=== PATIENT | male | born 1945 | race Caucasian/White ===

== ENCOUNTER 2020-01-28 10:12 | Inpatient (IN) | payer MEDICARE, OTHER, SELFPAY ==
[2020-01-28] VITALS (147 sets, daily range): BP systolic 97–159; BP diastolic 44–120; PULSE 46–165; RESP 9–38; TEMP 36.4–36.8; O2SAT 94–100
--- NOTE | 2020-01-28 10:00 | RT.EKG_ITS ---
APPROVED REPORT Exam: Resting ECG Patient Location: E HR:109 bpm ECG Measurements Heart Rate 109 AXIS NV [id number] P [id number] QRSd 81 QRS 38 QT 314 T 265 QTc 423 Conclusion Atrial fibrillationv RATE 109, NONSPECIFIC ST CHANGES
--- NOTE | 2020-01-28 10:24 | W.ED.GENAD ---
Discharge Plan Disposition Patient Disposition: [facility] INPATIENT Condition: Fair Discharge Details Chief Complaint: Chest Pain Clinical Impression: Atrial fibrillation, Elevated troponin Admit Date/Time: 01/28/20 17:40 Admit Provider: Evangelista Whiting Attending Provider: Evangelista Whiting Primary Care Provider: Lucia,[facility] ED Provider: Kaya Ruiz Discharge Data Discharge Date/Time-TO BE ENTERED AT DEPARTURE: 01/28/20 16:50 Medical Decision Making Patient is a pleasant 74-year-old gentleman past medical history significant for prostate cancer, type 2 diabetes, hypertension, cardiac catheterization with stent placements, SVT. States that at 3:00 this morning he awoke feeling short of breath. States that he felt fluttering in his chest. Is endorsing some right sided chest pain associated with this. He is denying any shortness of breath at this point. Continues to have the sensations. No nausea or vomiting. No pain in his back. States this does not feel like when he has had cardiac ischemic events historically. Patient is on aspirin Plavix and diabetes medications this morning. He reports he is on metoprolol and took this last night. Took ASA this morning, took his normal dose of Plavix. EKG was reviewed by Dr. Pena. Patient was in an irregular irregular rhythm with a heart rate estimate at 109. Most consistent with atrial fibrillation. patient and I discussed risk/benefits as well as expected procedural steps associated with using diltiazem. He is well within the 48-hour window. Patient has been taking his Plavix and ASA. Patinet given 20mg IV Diltiazem. Patient tolerated this well. He converted to NSR with rate in the 60s. Will obtain repeat ECG. Patient states chest pain is gone at this time. Repeat EKG was also reviewed by Dr. Pena. Patient is in sinus bradycardia at this time. A. No acute ischemic changes are noted. Labs reviewed. No leukocytosis, stable H&H. Coags are normal. No electrolyte abnormalities. His BUN and creatinine are elevated. The patient and his , creatinine is chronically elevated and is being followed by policy value calculator. Last checked here in 2015 at which time he was 1.52. His troponin is less than 0.05. TSH within normal limits. Chest x-ray reviewed by radiologist: FINDINGS: Lungs: The lungs are normally expanded and clear. Pleural space: Normal. Heart/Mediastinum: Normal heart and cardiomediastinal silhouette. Incidentally noted coronary artery stents. Vasculature: Normal pulmonary vessel caliber. Normal aorta. Bones/joints: Contiguous calcification of the anterior spinal ligaments indicating diffuse idiopathic skeletal hyperostosis (DISH). IMPRESSION: No evident cardiopulmonary disease or acutely concerning findings Patient's repeat troponin is bumped at 0.15. His repeat EKG is significant for T wave inversions that are new from the initial in V5 and V6. Plan to consult with [place] [facility] will given the patient on a heparin drip. Consulted with Dr. Marcum with [place] [facility] He reviewed the ECG and does not feel that this is atrial fibrillation. He advised that he believes it is SVT with variable block. He advised that this is not consistent with ACS. He did not feel that he needed inpatient ischemic eval. He advised observation here followed by discharge and follow up previously scheduled with ointment mill tender. He advised that increasing the metoprolol would be of benefit. He advised increasing the patient 200 mg of metoprolol. I had discussed this with the patient earlier and he reported that his ointment mill tender did not want to do this as he was concerned for hypotension. Therefore, the ointment mill tender advised cutting his hydralazine in half. I had ordered a heparin drip and ointment mill tender advised holding off on this and keeping him only on the Plavix. He did not feel that further anticoagulation was warranted at this time. We will cancel the heparin order. Discussed this plan with the patient. I also spoke with the patient's multiple times. They are agreement with admission not hopeful that they will still be able to make a cardiology appointment on Thursday. Patient has remained stable and comfortable since receiving his diltiazem. Consulted with Dr. Galindo who agrees to admission HPI General Mode of arrival: ambulatory. Date/Time Provider Initiated Documentation: 01/28/20 10:21. Limitations to Documentation: no limitations. Information obtained by: patient, RN notes reviewed and old records reviewed. HPI Narrative: Patient is a pleasant 74 year old male presenting today with c/c of right sided chest pain and fluttering in his chest. States that he did have a similar episode 5 to 6 years ago. Patient has had stent placement but states that this was not around the same time as the fluttering he experienced in his chest. He denies any shortness of breath. Breathing. Denies any nausea or vomiting. States that the chest pain is mild and rates at a 3 out of 10. He reports that he awoke at 3:00 this morning having difficulty with nasal congestion. He states that he was haying yesterday which set off his allergies. He denies any exertional symptoms yesterday when haying. He reports he used nasal spray to help with symptoms and shortly after this was when the fluttering began. He reports sudden onset of all symptoms. Was hoping to be able to wait this out at home as the patient does have follow-up appointment with his ointment mill tender in [facility] on Thursday. Related Data Home Medications Medication Instructions Recorded Confirmed Humalog U-100 Insulin 0 - 16 unit SQ PRN PRN 02/19/15 01/28/20 allopurinol 150 mg PO DAILY 02/19/15 01/28/20 aspirin [Aspirin Low-Strength] 81 mg PO DAILY 02/19/15 01/28/20 atorvastatin [Lipitor] 80 mg PO HS 02/19/15 01/28/20 clopidogrel [Plavix] 75 mg PO DAILY 02/19/15 01/28/20 fluconazole 50 mg PO PRN PRN 02/19/15 01/28/20 hydrochlorothiazide 25 mg PO DAILY 02/19/15 01/28/20 metformin 500 mg PO BID 02/19/15 01/28/20 metoprolol succinate [Toprol XL] 50 mg PO HS 02/19/15 01/28/20 nitroglycerin 0.4 mg SUBLINGUAL PRN PRN 02/19/15 01/28/20 hydralazine 50 mg PO BID 01/28/20 01/28/20 insulin glargine [Basaglar KwikPen 50 unit SUBCUT BID 01/28/20 01/28/20 U-100 Insulin] lorazepam 0.5 mg PO DAILY PRN 01/28/20 01/28/20 losartan 100 mg PO DAILY 01/28/20 01/28/20 mometasone 1 applic TOPICAL DAILY PRN 01/28/20 01/28/20 Allergies Allergy/AdvReac Type Severity Reaction Status Date / Time guaifenesin [From Robitussin] AdvReac Intermediate Palpitation Unverified 01/28/20 10:21 s. General Stated Complaint: Chest Pain MEREDITH: 2 Review of Systems Constitutional Constitutional: Reports as per HPI, Denies chills, Denies fever(s), Denies headache(s), Denies lethargy and Denies poor appetite Eyes Eyes: Denies change in vision ENT Ears, Nose, Mouth, and Throat: Denies dizziness and Denies headache(s) Cardiovascular Cardiovascular: Reports as per HPI, Reports chest pain, Reports chest pain at rest, Reports rapid heart rate (158), Reports irregular heart rhythm, Denies lightheadedness, Denies radiating jaw, neck or arm pain, Denies dyspnea and Denies dyspnea on exertion Respiratory Respiratory: Reports as per HPI, Denies chest congestion, Denies cough, Denies pain on inspiration, Denies pain with cough, Denies dyspnea, Denies dyspnea on exertion and Denies wheezing Gastrointestinal Gastrointestinal: Reports as per HPI, Denies abdominal pain, Denies diarrhea, Denies nausea and Denies vomiting Genitourinary Genitourinary: Denies system reviewed and no additional complaints, except as documented (denies change in urinary habits) Musculoskeletal Musculoskeletal: Reports as per HPI and Denies back pain Integumentary/Breasts Skin/Breast: Reports as per HPI and Denies rash Neurologic Neurologic: Reports as per HPI, Denies dizziness and Denies headache(s) Allergic/Immunologic Allergic/Immunologic: Denies wheezing FOR[facility]LY [facility], 1928–1983 Medical History (Updated 01/28/20 @ 23:14 by Evangelista Whiting) Chronic kidney disease (Acute) Coronary artery disease (Chronic) Diabetes mellitus type 2, insulin dependent (Acute) Essential hypertension (Acute) Nephrolithiasis (Chronic) Osteoarthritis (Chronic) Prostate cancer (Chronic) Surgical History (Updated 01/28/20 @ 16:52 by Evangelista Whiting) History of arthroscopic knee surgery (Chronic) History of back surgery (Acute) History of coronary angioplasty with insertion of stent (Acute 06/20/13) Cardiac cath with drug-eluting stents to LAD and to mid circumflex on February 05, [address] Anuel Norris @ [place], [place]; repeat cath 06/20/2013 with 3 stents to Cx; Dr. Anuel Mcginnis's office is at [address] [place] [address]; phone number is [phone] History of rotator cuff surgery (Acute) Social History Smoking/Tobacco Use Status: Never Alcohol Intake: never Drug use: Never Do you feel safe at home: Yes Exam Const General: cooperative, healthy appearing, comfortable, no acute distress and well developed Nutritional Appearance: well nourished and obese Orientation: alert, awake and oriented x3 [facility] Head: normal to inspection Ears: hearing grossly normal bilaterally Mouth: moist mucous membranes Chest Chest: normal inspection of the chest, normal palpation of entire chest wall and no crepitus Resp Effort & Inspection: normal respiratory effort, able to speak in complete sentences and no respiratory distress Auscultation: clear to auscultation bilaterally, no rales, no rhonchi and no wheezes Cardio Rate: tachycardic Rhythm: abnormal rhythm irregularly irregular Heart Sounds: S1 normal and S2 normal GI Inspection: normal to inspection, no edema and non-distended Palpation: soft, no hepatosplenomegaly, not firm, no guarding, not rigid and nontender Auscultation: normal bowel sounds Skin General skin exam: no rashes or lesions noted Trauma: no lacerations or abrasions Neuro General: patient alert, patient awake and patient oriented x3 Cognition: normal cognition Speech: speech normal Gait: normal gait Extrem General: normal to inspection, capillary refill normal, no pedal edema, no calf tenderness and normal gait Psych Appearance: grossly normal and well kempt Mental Status: mental status grossly normal Speech and Movement: speech and movement normal Course Vital Signs Vital signs: Vital Signs Temperature 36.6 C 01/28/20 10:17 Pulse 143 H 01/28/20 10:17 Respiratory Rate 22 01/28/20 10:17 Blood Pressure 159/77 H 01/28/20 10:17 Pulse Oximetry 97 01/28/20 10:17 Temperature 36.6 C 01/28/20 10:17 Temperature Source Skin 01/28/20 10:17 Pulse 143 H 01/28/20 10:17 Respiratory Rate 22 01/28/20 10:17 Blood Pressure 159/77 H 01/28/20 10:17 Blood Pressure Position Sitting 01/28/20 10:17 Pulse Oximetry 97 01/28/20 10:17 Oxygen Delivery Method Room Air 01/28/20 10:17 Oxygen Flow Rate 0 01/28/20 10:17 Pain Level 3 01/28/20 10:17
--- NOTE | 2020-01-28 10:30 | RT.EKG_ITS ---
APPROVED REPORT Exam: Resting ECG Patient Location: E HR:56 bpm ECG Measurements Heart Rate 56 AXIS W[place] 176 P 6 QRSd 87 QRS 5 QT 443 T 112 QTc 429 Conclusion Bradycardia with rate 56, Nonspecific T abnormalities, lateral leads.
[2020-01-28] MEDS: Normal Saline 1,000 ML 1000 ML IV (10:43)
[2020-01-28 10:45] LABS: Abs Immature Grans 0.03 10^3/uL (0.0-0.06); Absolute Basophil Count 0.06 10^3/uL (0.0-0.2); Absolute Eosinophil Count 0.53 10^3/uL (0.0-0.7); Absolute Lymphocyte Count 1.88 10^3/uL (1.2-3.4); Absolute Monocyte Count 0.96 10^3/uL (0.1-0.8); Absolute Neutrophil Count 6.47 10^3/uL (1.2-6.7); Basophils % 0.6; Eosinophils % 5.3; HCT 42.9 % (40.0-50.0); HGB 14.5 g/dL (13.5-17.5); Immature Grans % 0.3; Lymphocytes % 18.9; MCH 31.6 pg (27.0-33.0); MCHC 33.8 % (32.0-36.0); MCV 93.5 fL (80-95); MPV 9.8 fL (8.0-11.0); Monocytes % 9.7; Neutrophils % 65.2; Nucleated RBC 0 %; Platelet Count 205 10^3/uL (130-400); RBC 4.59 10^6/uL (4.36-5.78); RDW 14.2 % (11.8-14.1); RDW-SD 48.6 fL; WBC 9.93 10^3/uL (4.4-10.8)
--- NOTE | 2020-01-28 10:45 | RT.EKG_ITS ---
APPROVED REPORT Exam: Resting ECG Patient Location: E HR:58 bpm ECG Measurements Heart Rate 58 AXIS ME 106 P 55 QRSd 91 QRS 19 QT 410 T 81 QTc 385 Conclusion Sinus bradycardia, rate 58, qrs is narrow, no st elevation.
[2020-01-28] MEDS: dilTIAZem 25 MG/5 ML VIAL 20 MG IVP (10:48)
[2020-01-28 11:02] LABS: PTT Activated 23.1 sec (21.0-31.4); Prothrombin Time 10.4 sec (9.3-11.0)
[2020-01-28 11:09] LABS: ALT 43 U/L (16-63); AST 31 U/L (15-37); Albumin 3.5 g/dL (3.4-5.0); Alkaline Phosphatase 84 U/L (46-116); Anion Gap 8.3 mmol/L (3-11); BUN 40 mg/dL (7-18); Bilirubin, Total 0.7 mg/dL (0.2-1.0); CO2 26.7 mmol/L (21.0-32.0); CREATININE 1.72 mg/dL (0.70-1.30); Calcium 9.2 mg/dL (8.5-10.1); Chloride 106 mmol/L (98-107); Estimated GFR 39.17 (mL/min/1.73m2); Glucose 127 mg/dL (74-106); Magnesium 1.9 mg/dL (1.8-2.4); Potassium 3.9 mmol/L (3.5-5.1); Sodium 141 mmol/L (136-145); TSH 2.21 uIU/mL (0.36-3.74); Total Protein 6.9 g/dL (6.4-8.2); Troponin I < 0.05 ng/mL (<0.06)
--- NOTE | 2020-01-28 12:05 | DI.RAD_ITS ---
EXAM: XR CHEST 2V PA LATERAL CLINICAL HISTORY: CP, palpitations TECHNIQUE: 2D digital imaging was performed. COMPARISON: No exams were available for comparison FINDINGS: MEDIASTINUM: Normal. HEART: Normal. PULMONARY VASCULATURE: Normal. LUNGS: Clear. PLEURAL SPACE: No pleural effusion or pneumothorax. BONE:Flowing osteophytes in the spine. OTHER FINDINGS:Normal. IMPRESSION: No acute pulmonary findings. DATA REPOSITORY: RADIATION DOSE DELIVERED:
--- NOTE | 2020-01-28 12:09 | DI.VRAD_ITS ---
PROCEDURE INFORMATION: Exam: XR Chest, 2 Views Exam date and time: 01/28/2020 12:04 PM Age: 74 years old Clinical indication: Chest pain; Type not specified TECHNIQUE: Imaging protocol: XR of the chest Views: 2 views. COMPARISON: CR PORTABLE CHEST ONE VIEW 12/28/2015 11:13 PM FINDINGS: Lungs: The lungs are normally expanded and clear. Pleural space: Normal. Heart/Mediastinum: Normal heart and cardiomediastinal silhouette. Incidentally noted coronary artery stents. Vasculature: Normal pulmonary vessel caliber. Normal aorta. Bones/joints: Contiguous calcification of the anterior spinal ligaments indicating diffuse idiopathic skeletal hyperostosis (DISH). IMPRESSION: No evident cardiopulmonary disease or acutely concerning findings. Dictated and Authenticated by: Alexandr Barragan MD. Ordering:JOE Kirkpatrick MD
[2020-01-28] MEDS: Lactated Ringers 500 ML IV (12:33)
[2020-01-28 14:01] LABS: Troponin I 0.15 ng/mL (<0.06)
--- NOTE | 2020-01-28 15:07 | W.PM.HP.N ---
Date of service: 01/28/20 Time of Service: 15:08 Assessment and Plan Assessment and plan (1) Atrial fibrillation: Status: Chronic Assessment and plan: While initially his EKG upon presentation the emergency department had some features suggestive of PSVT with variable AV conduction I think his more recent EKG when he went back into the rapid narrow complex tachycardia appears more consistent with atrial fibrillation. It is quite a bit of irregularity to his ventricular response and the P wave morphology is not consistent. As noted in my HPI patient is going to be admitted to the intensive care unit placed on a diltiazem drip we will titrate his metoprolol dose. As the patient has a [id number] score of 4 placing him at high risk for thromboembolic disease I am going to initiate heparin drip. Critical time spent evaluating patient, coordinating care w/ his deburrer strip about 75 minutes Qualifiers: Atrial fibrillation type: paroxysmal Qualified Code(s): I48.0 - Paroxysmal atrial fibrillation (2) Non-STEMI (non-ST elevated myocardial infarction): Status: Acute Assessment and plan: probably type 2 demand ischemic NSTEMI; will heparinze and continue HR control w/ iv diltiazem and po lopressor, continue his ASA and Plavix; continue to cycle his troponin levels; he should have close follow up with cardiology; if his troponins continue to rise then will discusstransfer to [facility]. he has remained free of any CP or dyspnea since admission from the ER. (3) Elevated troponin: Status: Acute Assessment and plan: As the patient has no ongoing chest pain I suspect that his elevated troponin is still secondary to it type II NSTEMI due to demand ischemia however we will continue to cycle his troponin levels and I will get a proBNP to help with risk assessment. If he has any sudden chest discomfort or dyspnea or if there is a continued rise in his troponin levels we will repeat his EKG and discuss his case with [facility] cardiology for transfer. (4) Coronary artery disease: Status: Chronic Assessment and plan: Given his prior history of coronary atherosclerosis and stenting will have a low threshold for transfer to tertiary care center if his troponins continue to rise. The present time he denies any chest pain or dyspnea in spite of his recurrent atrial fibrillation Qualifiers: Associated angina: without angina Coronary Disease-Associated Artery/Lesion type: [place] artery [place] vs. transplanted heart: [place] heart Qualified Code(s): I25.10 - Atherosclerotic heart disease of [place] coronary artery without angina pectoris (5) Diabetes mellitus type 2, insulin dependent: Status: Acute Assessment and plan: Currently with holding his metformin during his acute hospital stay however will cover with basal and bolus insulin. (6) Essential hypertension: Status: Acute Assessment and plan: Continue his hydrochlorothiazide and losartan however I did reduce his dose of his hydralazine to 25 mg twice a day to allow more blood pressure in order to titrate his metoprolol and diltiazem. (7) Chronic kidney disease: Status: Acute Assessment and plan: Monitor renal function and avoid any NSAIDs. Qualifiers: Chronic kidney disease stage: unspecified stage Qualified Code(s): N18.9 - Chronic kidney disease, unspecified History of Present Illness History of Present Illness Chief Complaint: Palpitations Narrative: 74-year-old male non-smoker from [facility] who lives in [facility] during the [place] presents to the emergency department with acute onset of palpitations that began last night around 3 AM waking him up associated with feeling of shortness of breath and a fluttering feeling in the right side of his chest. He reported that his heart monitor said his heart rate was 158. However he presented to the emergency department around 10 AM because he continued to have symptoms. On arrival to the emergency department his heart rate was 105 and spiked up into the 140s while in triage. Stat EKG was performed and initially was felt to be atrial fibrillation but was then reviewed by our ER staff and referred to [facility] cardiology who reviewed it and indicated that it appears to be PSVT with variable AV conduction. Patient was treated with diltiazem 20 mg IV which slowed him down and got him into sinus rhythm. Further EKGs and lab work was done including serial troponin levels. His initial troponin was less than 0.05 and repeat 1 came back elevated at 0.15. Initial EKG demonstrated a narrow complex tachycardia that was irregular at a rate of about 120 bpm. On close inspection there does appear to be P waves they are occurring at about twice the rate of the QRS complexes suspicious for an AV daron reentry tachycardia. His repeat EKG after he converted to sinus rhythm showed sinus rhythm at a rate of 58 bpm with PACs but no ischemic changes. A third EKG performed couple hours later demonstrates sinus rhythm with new T wave inversions in 1 aVL and V5 and V6. Patient is currently pain-free. While interviewing him in the emergency department he went back into a narrow complex tachycardia at a rate in the 140s. Patient initially was to be admitted to the medical/surgical floor on telemetry however were changing his admission to the intensive care unit and started diltiazem drip. Per PRACHI Alejandre, conversation with [facility] cardiology they are not recommending heparin therapy at this time but to admit him overnight and cycle his cardiac enzymes and continue his aspirin and Plavix and titrate his metoprolol dose. Patient was scheduled to follow-up with his deburrer strip at [facility], Dr. Anuel Norris on Thursday. His repeat EKG which was ordered after he went back into his rapid heart rhythm was pending at the time that I dictated this note but is since come back and appears to be consistent with atrial fibrillation. Patient will be admitted to the intensive care unit and started on diltiazem drip for rate control. Serial troponin levels will be obtained. Patient be started on heparin drip For atrial fibrillation. Review of Systems Constitutional Constitutional: Denies chills and Denies fever(s) Eyes Eyes: Reports system reviewed and no additional complaints, except as documented ENT Ears, Nose, Mouth, and Throat: Reports system reviewed and no additional complaints, except as documented Cardiovascular Cardiovascular: Reports as per HPI and Reports dyspnea (last night and this morning w/ the rapid heart rate; not dyspneic now) Respiratory Respiratory: Reports dyspnea (last night and this morning w/ the rapid heart rate; not dyspneic now) Gastrointestinal Gastrointestinal: Reports heartburn (episode 2 nights ago w/ epigastric and chest burning, resolved spont.) Genitourinary Genitourinary: Reports system reviewed and no additional complaints, except as documented Musculoskeletal Musculoskeletal: Reports system reviewed and no additional complaints, except as documented Integumentary/Breasts Skin/Breast: Reports system reviewed and no additional complaints, except as documented Neurologic Neurologic: Reports system reviewed and no additional complaints, except as documented [facility] Medical History (Updated 01/28/20 @ 23:14 by Evangelista Whiting) Chronic kidney disease (Acute) Coronary artery disease (Chronic) Diabetes mellitus type 2, insulin dependent (Acute) Essential hypertension (Acute) Nephrolithiasis (Chronic) Osteoarthritis (Chronic) Prostate cancer (Chronic) Surgical History (Updated 01/28/20 @ 16:52 by Evangelista Whiting) History of arthroscopic knee surgery (Chronic) History of back surgery (Acute) History of coronary angioplasty with insertion of stent (Acute 06/20/13) Cardiac cath with drug-eluting stents to LAD and to mid circumflex on February 05, [address] Anuel Norris @ [place], [place]; repeat cath 06/20/2013 with 3 stents to Cx; Dr. Anuel Mcginnis's office is at [address] [place] [address]; phone number is [phone] History of rotator cuff surgery (Acute) Social History Smoking/Tobacco Use Status: Never Alcohol Intake: never Drug use: Never Do you feel safe at home: Yes Meds Home Medications and Allergies Home Medications Medication Instructions Recorded Confirmed Type Humalog U-100 Insulin 0 - 16 unit SQ PRN PRN 02/19/15 01/28/20 History allopurinol 150 mg PO DAILY 02/19/15 01/28/20 History aspirin [Aspirin Low-Strength] 81 mg PO DAILY 02/19/15 01/28/20 History atorvastatin [Lipitor] 80 mg PO HS 02/19/15 01/28/20 History clopidogrel [Plavix] 75 mg PO DAILY 02/19/15 01/28/20 History fluconazole 50 mg PO PRN PRN 02/19/15 01/28/20 History hydrochlorothiazide 25 mg PO DAILY 02/19/15 01/28/20 History metformin 500 mg PO BID 02/19/15 01/28/20 History metoprolol succinate [Toprol XL] 50 mg PO HS 02/19/15 01/28/20 History nitroglycerin 0.4 mg SUBLINGUAL PRN PRN 02/19/15 01/28/20 History hydralazine 50 mg PO BID 01/28/20 01/28/20 History insulin glargine [Basaglar KwikPen 50 unit SUBCUT BID 01/28/20 01/28/20 History U-100 Insulin] lorazepam 0.5 mg PO DAILY PRN 01/28/20 01/28/20 History losartan 100 mg PO DAILY 01/28/20 01/28/20 History mometasone 1 applic TOPICAL DAILY PRN 01/28/20 01/28/20 History Allergies Allergy/AdvReac Type Severity Reaction Status Date / Time guaifenesin [From Robitussin] AdvReac Intermediate Palpitation Unverified 01/28/20 10:21 s. Exam Narrative Exam Narrative: Obese male sitting up on a emergency room gurney in no acute distress. He is alert and oriented person place time circumstance. HEENT is unremarkable. Neck is obese supple nontender no JVD normal carotid pulses no bruits. Lungs are clear to auscultation Heart is tachycardic and irregular with no appreciable murmur. Abdomen is obese soft nontender no bruits no palpable masses Lower extremities without peripheral cyanosis or edema. Normal pedal pulses. Neuro exam is grossly intact no focal motor or sensory deficits. No focal cranial nerve deficits. Results Labs Result diagrams: 01/28/20 10:20 01/29/20 05:10 Labs: Laboratory Results - last 24 hr 01/28/20 01/28/20 01/28/20 10:20 10:20 10:20 WBC 9.93 RBC 4.59 Hgb 14.5 Hct 42.9 MCV 93.5 MCH 31.6 MCHC 33.8 RDW 14.2 H Plt Count 205 MPV 9.8 Immature Gran % 0.3 Neutrophils % 65.2 Lymphocytes % 18.9 Monocytes % 9.7 Eosinophils % 5.3 Basophils % 0.6 Absolute Neutrophils 6.47 Absolute Lymphocytes 1.88 Absolute Monocytes 0.96 H Absolute Eosinophils 0.53 Absolute Basophils 0.06 PT 10.4 INR 1.0 APTT 23.1 Sodium 141 Potassium 3.9 Chloride 106 Carbon Dioxide 26.7 Anion Gap 8.3 BUN 40 H Creatinine 1.72 H Estimated GFR/1.73 m2 39.17 Glucose 127 H Calcium 9.2 Magnesium 1.9 Total Bilirubin 0.7 AST 31 ALT 43 Alkaline Phosphatase 84 Troponin I < 0.05 Total Protein 6.9 Albumin 3.5 TSH 2.21 01/28/20 13:35 WBC RBC Hgb Hct MCV MCH MCHC RDW Plt Count MPV Immature Gran % Neutrophils % Lymphocytes % Monocytes % Eosinophils % Basophils % Absolute Neutrophils Absolute Lymphocytes Absolute Monocytes Absolute Eosinophils Absolute Basophils PT INR APTT Sodium Potassium Chloride Carbon Dioxide Anion Gap BUN Creatinine Estimated GFR/1.73 m2 Glucose Calcium Magnesium Total Bilirubin AST ALT Alkaline Phosphatase Troponin I 0.15 H* Total Protein Albumin TSH Last Vital Signs Temp 36.6 C 01/28/20 10:17 Pulse 58 L 01/28/20 12:56 Resp 29 H 01/28/20 13:50 BP 116/64 01/28/20 12:56 Pulse Ox 97 01/28/20 13:30 COVID-19 Screening Have you,or household,traveled outside [place] in last 14 days?: No Had IN PERSON contact w/suspected or confirmed C-19 person: No
[2020-01-28] MEDS: dilTIAZem 25 MG/5 ML VIAL 10 MG IVP (16:15)
--- NOTE | 2020-01-28 16:15 | RT.EKG_ITS ---
APPROVED REPORT Exam: Resting ECG Patient Location: E HR:93 bpm ECG Measurements Heart Rate 93 AXIS MN 64 P -89 QRSd 84 QRS 2 QT 355 T -61 QTc 441 Conclusion Atrial fibrillation... Nonspecific T abnormalities, lateral leads...T <-0.10mV, I aVL V5 V6
[2020-01-28] MEDS: dilTIAZem 25 MG/5 ML VIAL 15 MG IVP (17:35)
[2020-01-28] MEDS: dilTIAZem 125 MG in Normal Saline 100 ML IV (17:36)
[2020-01-28] MEDS: Normal Saline Flush 10 ML SYR IVP (17:36)
--- NOTE | 2020-01-28 18:00 | RT.EKG_ITS ---
APPROVED REPORT Exam: Resting ECG Patient Location: I HR:58 bpm ECG Measurements Heart Rate [address] 176 P 27 QRSd 87 QRS 9 QT 415 T 93 QTc 409 Conclusion Age and gender not entered, assume 51 yo male for purpose of ECG interpretation Sinus bradycardia...rate< 60 Nonspecific T abnormalities, lateral leads...T <-0.10mV, I aVL V5 V6 ST elev, probable normal early repol pattern...ST elevation, age<55
[2020-01-28] MEDS: Metoprolol 12.5 MG TAB PO ×2 (18:12→19:39)
[2020-01-28 18:37] LABS: NT-proBNP 322 pg/mL (<300)
[2020-01-28 19:17] LABS: PTT Activated 21.2 sec (21.0-31.4)
[2020-01-28] MEDS: hydrALAZINE 25 MG TAB PO (19:39)
[2020-01-28] MEDS: Insulin Glargine 300 UNITS/3 ML PEN 50 UNITS SC (20:50)
[2020-01-28] MEDS: Melatonin 3 MG TAB 9 MG PO (21:17)
[2020-01-28] MEDS: Atorvastatin 40 MG TAB 80 MG PO (23:14)
[2020-01-29] VITALS (38 sets, daily range): BP systolic 96–177; BP diastolic 35–82; PULSE 47–95; RESP 11–23; TEMP 36.1–37; O2SAT 96–100
[2020-01-29 05:43] LABS: Anion Gap 7.8 mmol/L (3-11); BUN 38 mg/dL (7-18); CO2 27.2 mmol/L (21.0-32.0); Chloride 108 mmol/L (98-107); Estimated GFR 42.58 (mL/min/1.73m2); Glucose 112 mg/dL (74-106); Potassium 3.5 mmol/L (3.5-5.1); Sodium 143 mmol/L (136-145)
[2020-01-29 05:45] LABS: PTT Activated 37.5 sec (21.0-31.4)
[2020-01-29 05:51] LABS: Calculated LDL 53 mg/dL (<100); Cholesterol 97 mg/dL (<200); HDL Cholesterol 27 mg/dL (40-60); Triglyceride 85 mg/dL (<150)
[2020-01-29 05:54] LABS: Troponin I 0.22 ng/mL (<0.06)
[2020-01-29] MEDS: Metoprolol 12.5 MG TAB 25 MG PO (06:40)
[2020-01-29 07:00] LABS: Hemoglobin A1C 8.4 % (3.8-5.6)
--- NOTE | 2020-01-29 07:00 | RT.EKG_ITS ---
APPROVED REPORT Exam: Resting ECG Patient Location: I HR:57 bpm ECG Measurements Heart Rate 57 AXIS ME 171 P 4 QRSd 92 QRS 22 QT 446 T 101 QTc 435 Conclusion Bradycardia with irregular rate...V-rate 47- 64, mean < 60
[2020-01-29 07:26] LABS: COVID-19 RT-PCR UVMMC Result Negative (Negative)
[2020-01-29] MEDS: Losartan 50 MG TAB 100 MG PO (07:51)
[2020-01-29] MEDS: hydrALAZINE 25 MG TAB PO ×2 (07:51→20:14)
[2020-01-29] MEDS: Clopidogrel 75 MG TAB PO (07:52)
[2020-01-29] MEDS: Aspirin 81 MG CHEW PO (07:52)
[2020-01-29] MEDS: Allopurinol 100 MG TAB 150 MG PO (07:52)
[2020-01-29] MEDS: Insulin Glargine 300 UNITS/3 ML PEN 50 UNITS SC ×2 (08:01→20:16)
--- NOTE | 2020-01-29 08:54 | PGE_ITS ---
Date of Service Date of service: 01/29/20 Time of Service: 08:54 Assessment and Plan Assessment and plan (1) Atrial fibrillation: Status: Acute Assessment and plan: Rhythm converted yesterday afternoon to sinus rhythm and he is remained in sinus rhythm ever since. He has been off the diltiazem drip since 2200 last night. Admitted changes Lopressor from 25 mg p.o. every 6 hours to Toprol XL 75 mg daily along with diltiazem CD 120 mg at night. He is to start apixaban 5 mg twice a day today and discontinue his heparin drip. Qualifiers: Atrial fibrillation type: paroxysmal Qualified Code(s): I48.0 - Paroxysmal atrial fibrillation (2) Non-STEMI (non-ST elevated myocardial infarction): Status: Acute Assessment and plan: Type II demand ischemic event. We will get an echocardiogram to evaluate LV function in the morning. Continue aspirin and Plavix along with beta-blockers. Continue his losartan. No evidence for acute congestive heart failure. Continue atorvastatin but at a reduced dose of 40 mg nightly because of the initiation of diltiazem CD. (3) Elevated troponin: Status: Acute Assessment and plan: As above. (4) Coronary artery disease: Status: Chronic Assessment and plan: Treatment as above Qualifiers: Coronary Disease-Associated Artery/Lesion type: [place] artery [place] vs. transplanted heart: [place] heart Associated angina: without angina Quali fied Code(s): I25.10 - Atherosclerotic heart disease of [place] coronary artery without angina pectoris (5) Diabetes mellitus type 2, insulin dependent: Status: Acute Assessment and plan: Currently with holding his metformin during his acute hospital stay however will cover with basal and bolus insulin. (6) Essential hypertension: Status: Acute Assessment and plan: Continue his hydrochlorothiazide and losartan however I did reduce his dose of his hydralazine to 25 mg twice a day to allow more blood pressure in order to titrate his metoprolol and diltiazem. (7) Chronic kidney disease: Status: Acute Assessment and plan: Monitor renal function and avoid any NSAIDs. Qualifiers: Chronic kidney disease stage: unspecified stage Qualified Code(s): N18.9 - Chronic kidney disease, unspecified (8) DVT prophylaxis: Status: Acute Assessment and plan: Initiate apixaban for treatment of his atrial fibrillation (9) Discharge planning issues: Status: Acute Assessment and plan: We will make changes to long-acting metoprolol XL and diltiazem CD today along with initiation of apixaban. We will check an echocardiogram in the morning but if he has no further events overnight plan will be to discharge him home tomorrow for follow-up with Dr. Moreland in the next 2 weeks. Subjective Subjective Interval history since last seen: Patient has remained in sinus rhythm overnight. He denies any chest pain or pressure palpitations. Symptom he has is this chronic intermittent fleeting electrical sensation over the left breast without any radiation to his neck or jaw or into his shoulders or arms. He has no dyspnea. He states he did not sleep well last night in spite of melatonin. I explained to Guido that I am going to switch him over to an oral anticoagulant called apixaban because of his high [id number] score of 4 which increases risk significantly for stroke. I spoke with his configuration engineer Dr. Yazan Moreland who indicated to me that Guido has had PSVT in the past but no PAF. However he indicated that he is not surprised that Mr. Alicia has developed intermittent rapid atrial fibrillation. Patient has untreated obstructive sleep apnea. Dr. Moreland agrees with my current management of transition him over from short acting Lopressor to a higher dose of his Toprol-XL as well as addition of a low- dose diltiazem CD. I indicated that we are going to get a formal echocardiogram in the morning and send a copy of the study for Dr. Moreland to review. Dr. Moreland want me to indicate a leny that he and I spoke and that he recommends that Guido stay here until his medications have been adequately adjusted and that were ensure that he has had no further recurrence of his A. fib. He agrees that the troponins probably represent demand ischemia and not a plaque rupture event. Echocardiogram will help us assess his LV function in the morning. His repeat troponin this morning has come back down although it is not yet normalized. His troponin peaked at 0.3 is now down to 0.22. A repeat another level in the morning and get an echocardiogram in the morning. His potassium is the low end of normal at 3.5. I Liat put him on some supplementation since he takes hydrochlorothiazide on a regular basis. Guido would like to shower and would like to use a regular toilet rather than a bedside commode. I think we can accommodate him by transfer him out of the intensive care unit. Exam Narrative Exam Narrative: Alert and oriented person place time circumstance. Appears to be comfortable no respiratory distress. Lungs are clear to auscultation Heart is regular rate and rhythm Abdomen is obese soft nontender Extremities without peripheral cyanosis or edema. Objective Objective Clinical Data: Abnormal lab results 01/28/20 01/28/20 01/28/20 Range/Units 10:20 10:20 13:35 RDW 14.2 H (11.8-14.1) % Absolute Monocytes 0.96 H (0.1-0.8) 10^3/uL APTT (21.0-31.4) sec Chloride (98-107) mmol/L BUN 40 H (7-18) mg/dL Creatinine 1.72 H (0.70-1.30) mg/dL Glucose 127 H (74-106) mg/dL Hemoglobin A1c (3.8-5.6) % Troponin I 0.15 H* (<0.06) ng/mL NT-Pro-B Natriuret Pep (<300) pg/mL HDL Cholesterol (40-60) mg/dL 01/28/20 01/28/20 01/28/20 Range/Units 13:35 13:35 18:43 RDW (11.8-14.1) % Absolute Monocytes (0.1-0.8) 10^3/uL APTT (21.0-31.4) sec Chloride (98-107) mmol/L BUN (7-18) mg/dL Creatinine (0.70-1.30) mg/dL Glucose (74-106) mg/dL Hemoglobin A1c 8.4 H (3.8-5.6) % Troponin I 0.30 H* (<0.06) ng/mL NT-Pro-B Natriuret Pep 322 H (<300) pg/mL HDL Cholesterol (40-60) mg/dL 01/29/20 01/29/20 01/29/20 Range/Units 05:10 05:10 05:10 RDW (11.8-14.1) % Absolute Monocytes (0.1-0.8) 10^3/uL APTT 37.5 H D (21.0-31.4) sec Chloride 108 H (98-107) mmol/L BUN 38 H (7-18) mg/dL Creatinine 1.60 H (0.70-1.30) mg/dL Glucose 112 H (74-106) mg/dL Hemoglobin A1c (3.8-5.6) % Troponin I 0.22 H* (<0.06) ng/mL NT-Pro-B Natriuret Pep (<300) pg/mL HDL Cholesterol 27 L (40-60) mg/dL Vital Signs Temperature 36.5 C 01/29/20 08:48 Temperature Source Temporal Artery Scan 01/29/20 08:48 Pulse 95 H 01/29/20 08:48 Pulse 58 L 01/29/20 06:30 Respiratory Rate 18 01/29/20 08:48 Respiratory Effort 01/29/20 08:48 Respiratory Depth Normal 01/29/20 08:48 Respiratory Pattern Normal 01/29/20 08:48 Blood Pressure 129/76 01/29/20 08:48 Blood Pressure Mean 93 01/29/20 08:48 Blood Pressure Position Sitting 01/29/20 08:48 Pulse Oximetry 97 01/29/20 08:48 Oxygen Delivery Method Room Air 01/29/20 08:48 Oxygen Flow Rate 0 01/29/20 08:48 Pain Level 0 01/29/20 08:48 Intake & Output 01/28/20 01/28/20 01/29/20 11:59 23:59 11:59 Intake Total 2610.308 6151.458 / 1528.458 105.333 / 105.333 Output Total 900 / 900 1200 / 1200 Balance 628.458 618.458 / 628.458 -1094.667 / -1094.667 Weight 98.883 kg 98.883 kg Intake: IV 3931.876 9106.458 / 1528.458 105.333 / 105.333 Output: Urine 900 / 900 1200 / 1200 Other: Urine Color Yellow Yellow Urine Appearance Clear Clear Urine Odor Normal Comment HX of prostate CA Voiding Methods Urinal Laboratory Results WBC 9.93 10^3/uL (4.4-10.8) 01/28/20 10:20 RBC 4.59 10^6/uL (4.36-5.78) 01/28/20 10:20 Hgb 14.5 g/dL (13.5-17.5) 01/28/20 10:20 Hct 42.9 % (40.0-50.0) 01/28/20 10:20 MCV 93.5 fL (80-95) 01/28/20 10:20 MCH 31.6 pg (27.0-33.0) 01/28/20 10:20 MCHC 33.8 % (32.0-36.0) 01/28/20 10:20 RDW 14.2 % (11.8-14.1) H 01/28/20 10:20 Plt Count 205 10^3/uL (130-400) 01/28/20 10:20 MPV 9.8 fL (8.0-11.0) 01/28/20 10:20 Immature Gran % 0.3 01/28/20 10:20 Neutrophils % 65.2 01/28/20 10:20 Lymphocytes % 18.9 01/28/20 10:20 Monocytes % 9.7 01/28/20 10:20 Eosinophils % 5.3 01/28/20 10:20 Basophils % 0.6 01/28/20 10:20 Absolute Neutrophils 6.47 10^3/uL (1.2-6.7) 01/28/20 10:20 Absolute Lymphocytes 1.88 10^3/uL (1.2-3.4) 01/28/20 10:20 Absolute Monocytes 0.96 10^3/uL (0.1-0.8) H 01/28/20 10:20 Absolute Eosinophils 0.53 10^3/uL (0.0-0.7) 01/28/20 10:20 Absolute Basophils 0.06 10^3/uL (0.0-0.2) 01/28/20 10:20 PT 10.4 sec (9.3-11.0) 01/28/20 10:20 INR 1.0 (0.9-1.1) 01/28/20 10:20 APTT 37.5 sec (21.0-31.4) H D 01/29/20 05:10 Sodium 143 mmol/L (136-145) 01/29/20 05:10 Potassium 3.5 mmol/L (3.5-5.1) 01/29/20 05:10 Chloride 108 mmol/L (98-107) H 08/16/20 05:10 Carbon Dioxide 27.2 mmol/L (21.0-32.0) 01/29/20 05:10 Anion Gap 7.8 mmol/L (3-11) 01/29/20 05:10 BUN 38 mg/dL (7-18) H 01/29/20 05:10 Creatinine 1.60 mg/dL (0.70-1.30) H 01/29/20 05:10 Estimated GFR/1.73 m2 42.58 (mL/min/1.73m2) 01/29/20 05:10 Glucose 112 mg/dL (74-106) H 01/29/20 05:10 Hemoglobin A1c 8.4 % (3.8-5.6) H 01/28/20 13:35 Calcium 9.0 mg/dL (8.5-10.1) 01/29/20 05:10 Magnesium 1.9 mg/dL (1.8-2.4) 01/28/20 10:20 Total Bilirubin 0.7 mg/dL (0.2-1.0) 01/28/20 10:20 AST 31 U/L (15-37) 01/28/20 10:20 ALT 43 U/L (16-63) 01/28/20 10:20 Alkaline Phosphatase 84 U/L (46-116) 01/28/20 10:20 Troponin I 0.22 ng/mL (<0.06) H* 01/29/20 05:10 NT-Pro-B Natriuret Pep 322 pg/mL (<300) H 01/28/20 13:35 Total Protein 6.9 g/dL (6.4-8.2) 01/28/20 10:20 Albumin 3.5 g/dL (3.4-5.0) 01/28/20 10:20 Triglycerides 85 mg/dL (<150) 01/29/20 05:10 Total Cholesterol 97 mg/dL (<200) 01/29/20 05:10 LDL Cholesterol, Calc 53 mg/dL (<100) 01/29/20 05:10 HDL Cholesterol 27 mg/dL (40-60) L 01/29/20 05:10 TSH 2.21 uIU/mL (0.36-3.74) 01/28/20 10:20 COVID-19 PCR Negative (Negative) 01/28/20 15:11 Nasopharyn COVID-19 PCR Not Applicable 01/28/20 15:11 Ref Test Perform Site [facility] 01/28/20 15:11
--- NOTE | 2020-01-29 09:02 | INITIAL_ITS ---
- If Service Date Differs Date of service: 01/29/20 Time of Service: 09:02 Care Management Initial Assess REASON FOR HOSPITALIZATION:: Atrial fibrillation PAST MEDICAL HISTORY/PAST SURGICAL HISTORY:: Medical History (Updated 01/28/20 @ 23:14 by Evangelista Whiting). Chronic kidney disease (Acute). Coronary artery disease (Chronic). Diabetes mellitus type 2, insulin dependent (Acute). Essential hypertension (Acute). Nephrolithiasis (Chronic). Osteoarthritis (Chronic). Prostate cancer (Chronic). Surgical History (Updated 01/28/20 @ 16:52 by Evangelista Whiting). History of arthroscopic knee surgery (Chronic). History of back surgery (Acute). History of coronary angioplasty with insertion of stent (Acute 06/20/13). Cardiac cath with drug-eluting stents to LAD and to mid circumflex on February 05, [address] Anuel Norris @ [facility] [place]; repeat cath 06/20/2013 with 3 stents to Cx; Dr. Anuel Mcginnis's office is at [address] [place] [address]; phone number is [phone]. History of rotator cuff surgery (Acute). Social History (Revi PREVIOUS FUNCTIONAL STATUS/SOCIAL/FAMILY SUPPORTS:: Guido and his Judy have dual residency in [place] on [facility] and in [place], [place] 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 They have 2 children and 2 grandchildren. Judy is a retired teacher. Guido uses no assistive devces and does not receive any community services joann is independent in the community. CURRENT FUNCTIONAL STATUS:: Guido was sitting up in bed visiting with his when CM met with him. He was pleasant and engaged readily with CM. He and Judy shared how much they love living in the [facility] and how privileged they feel to be able to do so. They admitted that they wish they could be here all of the time, but their family and his practice ois on the [place]. Guido requested information about establishing with a PCP in this area. He shared that he no longer has one on [facility] and since he spends much of his time here, feels it would be appropriate. CM provided him with some information and will support him in the process as able. ADVANCE DIRECTIVES:: none on file Has patient been provided with info about the portal/API?: Yes Did the patient sign up for the portal?: Yes (previously) CODE STATUS:: Full Code INSURANCE COVERAGE / FINANCIAL ISSUES:: Medicare. [facility] CURRENT HOME/COMMUNITY SERVICES/EQUIPMENT:: none PRIMARY CARE PHYSICIAN:: None local but desires to establish with a PCP in [place] POTENTIAL DISCHARGE NEEDS:: Follow up with [facility] and PCP PATIENT/FAMILY EDUCATION NEEDS:: Discharge plan, follow up plan, limitations, Ask Me Three TRANSPORTATION:: via private vehicle with PLAN:: Guido will likely be discharged home with no new services. He will follow up for a one time visit with a local provider and hopefully establish with that practice. He will transport with his via private vehicle. CM will continue to support Guido and Judy and assess for discharge planning concerns.
[2020-01-29] MEDS: Apixaban 5 MG TAB PO ×2 (11:20→20:14)
[2020-01-29] MEDS: Insulin Aspart 300 UNITS/3 ML PEN SC ×3 (11:57→22:17)
[2020-01-29] MEDS: METOPROLOL CR 50 MG, METOPROLOL CR 25 MG 75 MG PO (12:00)
--- NOTE | 2020-01-29 13:16 | PHA.REVIEW ---
Pharmacy Admission Review - Admission Clinical Review (Last Updated 01/28/20 @ 16:52 by Evangelista Whiting) Non-STEMI (non-ST elevated myocardial infarction) (Acute) Chronic kidney disease (Acute) Diabetes mellitus type 2, insulin dependent (Acute) Essential hypertension (Acute) Elevated troponin (Acute) guaifenesin [From Robitussin] Adverse Reaction (Intermediate, Unverified 01/28/20 10:21) Palpitations. Height 5 ft 10 in Weight 98.883 kg - Renal Dosing Renal Dosing: BUN 38 mg/dL (7-18) H 01/29/20 05:10 Creatinine 1.60 mg/dL (0.70-1.30) H 01/29/20 05:10 Medications needing adjustments: Reviewed (Crcl ~48.5 mL/min using adjusted body weight. Current meds okay) - Anticoagulation Anticoagulation: Hgb 14.5 g/dL (13.5-17.5) 01/28/20 10:20 Hct 42.9 % (40.0-50.0) 01/28/20 10:20 Plt Count 205 10^3/uL (130-400) 01/28/20 10:20 INR 1.0 (0.9-1.1) 01/28/20 10:20 Creatinine 1.60 mg/dL (0.70-1.30) H 01/29/20 05:10 DVT Prohphylaxis: N/A Therapeutic Anticoagulation: Reviewed Medications: Apixaban (started this admission) - Opiate Usage Evaluate Pain Scale/Pains Meds: N/A - Relevant Labs Sodium 143 mmol/L (136-145) 01/29/20 05:10 Potassium 3.5 mmol/L (3.5-5.1) 01/29/20 05:10 Chloride 108 mmol/L (98-107) H 01/29/20 05:10 Magnesium 1.9 mg/dL (1.8-2.4) 01/28/20 10:20 Electrolytes, C-Reactive P, ESR: Reviewed - DM Control DM Control: Glucose 112 mg/dL (74-106) H 01/29/20 05:10 Hemoglobin A1c 8.4 % (3.8-5.6) H 01/28/20 13:35 Finger Stick Blood Glucose 187 Finger Stick Blood Glucose 187 Finger Stick Blood Glucose 121 Finger Stick Blood Glucose 121 Finger Stick Blood Glucose 121 Insulin Dosing: Reviewed (scheduled glargine and sliding scale aspart ordered) - Heart Failure/ME Heart Failure/ME: Troponin I 0.22 ng/mL (<0.06) H* 01/29/20 05:10 NT-Pro-B Natriuret Pep 322 pg/mL (<300) H 01/28/20 13:35 EF%, ENRIKE's, B-Blockers, Diuretics: Reviewed (troponins: 0.15, 0.30, 0.22) - BP Control BP Control: Blood Pressure [Right Arm] 129/76 Blood Pressure [Right Arm] 129/76 Blood Pressure 103/38 Blood Pressure 129/76 Blood Pressure 120/64 If elevated: N/A - Qtc Review If Elevated: N/A (QTc 385) - IV to PO Switch IV Medications: Reviewed - Home Meds Home Med List reviewed: Intervened (mentioned to provider some differences between external med history and pts current home med list. Most pertained to meds not currently ordered (metformin and victoza) as pt is on glargine and sliding scale aspart while admitted. Fluconazole may decrease the serum concentration of th active metabolites of clopidogrel, increasing the risk for impaired effectiveness. Consider alternatives.) Relevent Home Meds Not ordered & why?: fluconazole(PRN), humalog (has insulin aspart ordered), metformin (has other coverage), mometasone(PRN) - Current meds Current Medication Order Review: Intervened (talked to MD about decreasing atorvastatin dosing as pt starting on diltiazem. Fixed two PRN orders so PRN in frequency and schedule.) - Comments Comments/Follow Ups: Watch BP, BG, troponin (ordered for AM), and for med changes.
[2020-01-29] MEDS: Potassium Chloride 10 MEQ CAPCR 20 MEQ PO (16:00)
[2020-01-29] MEDS: dilTIAZem CD 120 MG CAPCR PO (22:13)
[2020-01-29] MEDS: Zolpidem 6.25 MG TABCR 12.5 MG PO (22:13)
[2020-01-29] MEDS: Atorvastatin 40 MG TAB PO (22:13)
[2020-01-30 05:01] VITALS: BP 144/60; PULSE 67; RESP 17; TEMP 36.9; O2SAT 95
[2020-01-30 07:23] LABS: Anion Gap 5.8 mmol/L (3-11); BUN 33 mg/dL (7-18); CO2 29.2 mmol/L (21.0-32.0); CREATININE 1.52 mg/dL (0.70-1.30); Calcium 9.2 mg/dL (8.5-10.1); Chloride 107 mmol/L (98-107); Estimated GFR 45.18 (mL/min/1.73m2); Glucose 88 mg/dL (74-106); Potassium 4.1 mmol/L (3.5-5.1); Sodium 142 mmol/L (136-145)
--- NOTE | 2020-01-30 07:27 | DI.US_ITS ---
APPROVED REPORT EXAM: Comprehensive 2D, Doppler, and color-flow Echocardiogram Patient Location: In-Patient Room/Bed: 230 Direct Service Worker: Brandie Fine RDCS (AE) Indications: NSTEMI Other Information Study Quality: Adequate Conclusion Left Ventricle : The left ventricle is normal size. The left ventricular systolic function is normal. The left ventricular ejection fraction is within the normal range. There is normal LV segmental wall motion. The left ventricular diastolic function is abnormal. LVEF is 50%. Right Ventricle : The right ventricle is normal size. The right ventricular systolic function is norm al. The RVSP is 32.8 mmHg. Atria : The left atrium size is normal. The right atrium size is normal. Mitral Valve : Moderate mitral annular calcification. No evidence of mitral valve stenosis. Mild to m oderate mitral regurgitation. Great Vessels : The aortic root is normal in size. The ascending aorta is severely dilated (4.2cm). A ortic arch is not well visualized. IVC is normal in size and collapses >50% with inspiration. The remainder study for further details. There is no prior study available for comparison. Wall motion Left Ventricle The left ventricle is normal size. The left ventricular systolic function is normal. The left ventric ular ejection fraction is within the normal range. Mild concentric left ventricular hypertrophy. Ther e is normal LV segmental wall motion. The left ventricular diastolic function is abnormal. There is n o ventricular septal defect visualized. LVEF is 50%. Right Ventricle The right ventricle is normal size. The right ventricular systolic function is normal. The RVSP is 32 .8 mmHg. Atria The left atrium size is normal. The right atrium size is normal. The interatrial septum is intact wit h no evidence for an atrial septal defect. Aortic Valve The Aortic valve is sclerotic. Aortic valve is trileaflet. There is no aortic valvular stenosis. Trac e to mild aortic regurgitation. Mitral Valve Moderate mitral annular calcification. No evidence of mitral valve stenosis. Mild to moderate mitral regurgitation. Tricuspid Valve The tricuspid valve is normal in structure. There is no tricuspid valve stenosis. Trace tricuspid reg urgitation. Pulmonic Valve The pulmonary valve is normal in structure. There is no pulmonic valvular stenosis. Trace pulmonic re gurgitation. Great Vessels The aortic root is normal in size. The ascending aorta is severely dilated (4.2cm). Aortic arch is no t well visualized. IVC is normal in size and collapses >50% with inspiration. Pericardium There is no pericardial effusion. 2D Dimensions IVSD d PLAX 1.30 cm M: 0.6-1.2 LA vol/ BSA A2C s A-L 32.9 mL/m2 LVPW d PLAX 1.30 cm M: 0.6 - 1.2 LA vol/ BSA A4C s A-L 31.1 mL/m2 LVID d PLAX 4.70 cm M: 4.2 - 5.8 LA Vol/ BSA Biplane s A-L 32.8 mL/m2 LVDs 3.27 cm M: 2.5 - 4.0 LA Area A4C s MOD 67.30 cm2 Ao Root d 3.62 cm M: 3.1 - 3.7 LA Area A2C s MOD 71.10 cm2 RA Area A4C 16.69 cm2 LV EF A4C MOD 47.9 % RA Vol/ BSA A4C s A-L 18.3 mL/m2 LV EF A2C MOD 52.3 % Ao Asc Diam d 4.23 cm M: 2.6 - 3.4 LV EF Biplane MOD 49.5 % LV EF Teichholz 57.8 % SV 59.23 mL LVEF (Frances's) 49.50 % M: 52 - 72 SV Index 27.41 mL/m2 CO 3.49 mL/min FS 30.40 % M-Mode TAPSE 2.33 cm (M/F) >1.7 LV Diastology MV E' medial 0.054 (>0.07 m/s) E/A Ratio 0.7 LV E/e MED 14.96 (<14) MV E Vmax 0.80 (0.4-1.3 m/s) MV E' lateral 0.075 (>0.1 m/s) MV A Vmax 1.08 (0.4-1.3 m/s) LV E/e LAT 10.79 (<14) MV E/A Ratio 0.76 E Peak Velocity 0.80 m/s A Peak Velocity 1.05 m/s Aortic Valve LVOT Area 2.81 cm2 CAROLINE Index 1.10 cm2/m2 LVOT Vmax 1.23 m/s AoV Area Vmax 2.38 cm2 LVOT Mean Sukumar. 0.82 m/s AoV Area/ BSA (Vmax) 1.10 cm2/m2 LVOT Peak Grad 6.1 mmHg CAROLINE Mean Sukumar. 2.34 cm2 LVOT Mean Grad 3.1 mmHg CAROLINE Mean Sukumar. Index 1.08 cm2/m2 LVOT VTI 0.272 m AV Regurg Sukumar. ED 2.04 m/s LVOT Diam s 1.89 cm AR DT 2028 msec AoV Vmax 1.46 m/s AR PHT 588 msec Velocity Ratio 0.84 AoV Mean Sukumar. 0.99 m/s AoV Peak Grad 8.5 mmHg LVOT SV 76.37 mL AoV Mean Grad 4.4 mmHg AoV VTI 0.335 m AoV Area VTI 2.28 cm2 AoV Area/ BSA (VTI) 1.05 cm/m2 Mitral Valve MV DT 220 (160-240 msec) MR Vmax 5.08 m/s MV PHT 64 msec MR VTI 1.791 m MV Area PHT 3.45 cm2 MR Peak Grad 103.4 mmHg MV VTI 0.357 m MR Mean Grad 69.3 mmHg MV Area VTI 2.14 (4.0-6.0 cm2) MR PISA Radius 0.42 cm Pulm Vein s 1.12 m/s MR EROA 0.08 cm2 MR Aliasing Velocity 0.35 m/s MR PISA 1.13 cm2 MV Regurg Vol 13.90 mL Pulmonary Valve PV Vmax 1.12 (0.5-1.5 m/s) RVOT Peak Gr. 2.50 mmHg PV Peak Grad 5.1 mmHg RVOT Mean Gr. 1.30 mmHg PV Mean Grad 2.4 mmHg RVOT VTI 0.177 m PV VTI 0.243 m RVOT Vmax 0.08 m/s Tricuspid Valve TR Peak Grad 2.7 mmHg TR Vmax 2.73 m/s RA Pressure 3.00 mmHg RVSP (TR) 32.8 mmHg
[2020-01-30 07:34] LABS: Troponin I 0.09 ng/mL (<0.06)
[2020-01-30 08:22] VITALS: BP 147/71; PULSE 67; RESP 20; TEMP 36.2; O2SAT 100
--- NOTE | 2020-01-30 08:23 | PDOC.CMPRO ---
- If Service Date Differs Date of service: 01/30/20 Time of Service: 08:23 Care Management Progress Note S/O: A:Guido is a 74 year old male admitted with chest pain and PSVT P:
[2020-01-30] MEDS: Allopurinol 100 MG TAB 150 MG PO (08:28)
[2020-01-30] MEDS: Potassium Chloride 10 MEQ CAPCR 20 MEQ PO (08:28)
[2020-01-30] MEDS: METOPROLOL CR 50 MG, METOPROLOL CR 25 MG 75 MG PO (08:29)
[2020-01-30] MEDS: Aspirin 81 MG CHEW PO (08:29)
[2020-01-30] MEDS: Losartan 50 MG TAB 100 MG PO (08:30)
[2020-01-30] MEDS: hydroCHLOROthiazide 12.5 MG TAB 25 MG PO (08:30)
[2020-01-30] MEDS: Apixaban 5 MG TAB PO (08:30)
[2020-01-30] MEDS: hydrALAZINE 25 MG TAB PO (08:30)
[2020-01-30] MEDS: Clopidogrel 75 MG TAB PO (08:30)
[2020-01-30] MEDS: Insulin Glargine 300 UNITS/3 ML PEN 50 UNITS SC (08:31)
[2020-01-30] MEDS: Insulin Aspart 300 UNITS/3 ML PEN SC (11:57)
--- NOTE | 2020-01-30 12:25 | W.PM.DS.N ---
Date of service: 01/30/20 Time of Service: 12:25 DS: Diagnosis Discharge Diagnosis (1) Atrial fibrillation: Status: Chronic Asessment and Plan: Patient supraventricular arrhythmia was controlled with IV diltiazem and converted over to long-acting oral Cardizem CD 120 mg at night as well as an adjustment of his Toprol-XL to 75 mg daily. Patient was treated with a heparin drip which was converted over to apixaban 5 mg p.o. twice daily. It is recommended that the patient have an outpatient Holter to assess stability of his arrhythmias. It is also strongly recommended that the patient follow-up with a sleep specialist to have a polysomnogram as well as initiation of CPAP. TSH was checked on admission was within normal limits at 2.21. (2) Non-STEMI (non-ST elevated myocardial infarction): Status: Resolved Asessment and Plan: Patient sustained a non-ST elevation myocardial infarction type II demand ischemic event in which his troponin peaked at 0.30 and was back down to 0.09 upon discharge. Echocardiogram was checked and he was found to have normal left ventricular systolic function with an ejection fraction of 50% with no wall motion abnormalities. He has some diastolic dysfunction and he has mild to moderate mitral regurgitation and moderate mitral annular calcification. Right ventricular size and function was within normal limits. There is no aortic stenosis nor was there any aortic regurgitation. However he has significant dilatation of his aortic root at 4.2 cm. It is recommended that he follow-up with his long chain dyeing machine operator to arrange outpatient CTA of his thoracic aorta and/or BRIANA to better characterize his a sending aortic dilatation. He may need nephrology involvement if he is undergoes a CTA because of his chronic renal dysfunction. (3) Elevated troponin: Status: Resolved (4) Coronary artery disease: Status: Chronic Asessment and Plan: Patient has remained free of any anginal symptoms throughout his hospital stay. Outpatient follow-up stress test may be considered to assess any residual ischemic burden. (5) Diabetes mellitus type 2, insulin dependent: Status: Chronic Asessment and Plan: Patient was discharged home on his home diabetic regimen which includes metformin and Basaglar as well as Humalog per sliding scale. His recommend that his PCP work with an spring repairer helper hand to improve his diabetic control as the patient's glycohemoglobin A1c was elevated at 8.4%. (6) Essential hypertension: Status: Chronic Asessment and Plan: Patient's blood pressures were never a major issue during his hospitalization. I temporarily decrease his hydralazine dose to allow enough blood pressure for titration of his diltiazem. However the day prior to discharge his blood pressure did go up to 170/80 and at the time of discharge his blood pressure was 147/71. I have since resumed his previous dose of hydralazine at 50 mg twice a day. He will continue with the losartan 100 mg daily in addition to the diltiazem CD 120 mg at at bedtime and Toprol-XL 75 mg daily. (7) Chronic kidney disease: Status: Chronic Asessment and Plan: Renal function remained stable throughout his hospital stay. Presenting creatinine was 1.72 and at discharge his creatinine was 1.52. Presenting BUN was 40 and discharge BUN was 33. He did have some mild hypokalemia that responded to low-dose potassium supplementation. (8) DVT prophylaxis: Status: Resolved Asessment and Plan: DVT prophylaxis was achieved with a heparin drip and subsequently with apixaban. (9) Discharge planning issues: Status: Resolved Asessment and Plan: Patient is being discharged home. I have cautioned her about avoiding sharp or dangerous objects that could lead to injuries that would increase bleeding. For example I told him to avoid climbing up any ladders or being on high levels and to avoid use of chainsaws or other extremely sharp instruments because of his use of apixaban. He is told that if he has any serious head injuries or serious trauma that he should get checked out right away at the nearest emergency room and that he should wear a medical alert bracelet indicating that he is on an anticoagulant. (10) Ascending aorta dilatation: Status: Chronic Asessment and Plan: Patient was found to have 4.2 cm aortic root dilatation on his transthoracic echocardiogram. Follow-up CTA of his chest or BRIANA is recommended. Patient was advised to discuss work-up and routine follow-up about this with his long chain dyeing machine operator Dr. Yazan Moreland. Copy of the patient's echocardiogram study was given to him along with a copy of the written report. Discharge Plan Disposition Patient Disposition: HOME Condition: Good Discharge Details Chief Complaint: Chest Pain Clinical Impression: Atrial fibrillation, Elevated troponin Reason For Visit: PSVT, CHEST PAIN Admit Date/Time: 01/28/20 17:40 Admit Provider: Evangelista Whiting Attending Provider: Evangelista Whiting Primary Care Provider: Lucia[facility]: 74-year-old male non-smoker from [facility] who lives in [facility] during the [facility] presented emergency department on January 28, 2020 with acute onset of palpitations that began around 3 AM in the morning waking him up with feelings of shortness of breath and a fluttering sensation in the right side of his chest. He indicated that his heart monitor at home read 150 bpm. Nevertheless he thought it would go away and wait until 10 AM when he presented to the emergency department at [facility]. On arrival his heart rate was 105 bpm but while in triage area his heart rate spiked in the 140s. Stat EKG was performed initially ER personnel thought it was atrial fibrillation but they faxed his EKGs to [facility] cardiology and the fellow there thought it looked like PSVT with variable AV conduction. Patient was initially treated with diltiazem 20 mg IV push which slowed him down and come back in a sinus rhythm. Further EKGs and serial troponin levels were obtained. Initial troponin came back less than 0.05 however his repeat level came back 0.15. Repeat EKG demonstrated sinus rhythm at a rate of 50 bpm with PACs but no ischemic changes. Couple hours later a third EKG was performed and demonstrated sinus rhythm with new T wave inversions in limb lead I, aVL and V5 and V6. Patient remained free of any chest pain or dyspnea. While being interviewed in the emergency department by myself he went back into a narrow complex tachycardia with heart rate in the 140s for which I felt was atrial fibrillation. He was given boluses of diltiazem initially 10 mg then 15 mg and transiently slowed his rate down but did not convert his rhythm. He was put on a Cardizem drip at 5 mg an hour and admitted to the intensive care unit. He was put on a heparin drip in addition to the diltiazem drip. His calculated [id number] score is 4 placing him at higher risk for CVA and therefore is felt that he would benefit from long-term anticoagulation. We continued his aspirin and Plavix and started him on Lopressor in addition to the diltiazem drip. Overnight his rhythm converted to sinus rhythm. Lopressor was transitioned back to a long-acting Toprol-XL at 75 mg daily and the IV Cardizem was discontinued and he was placed on Cardizem CD 120 mg at night. Heparin drip was discontinued and he was started on apixaban 5 mg twice a day. Phone consultations were obtained with his primary long chain dyeing machine operator Dr. Yazan Moreland in [place], [place]. Patient's EKGs were faxed to Dr. Moreland. Patient agreed to stay overnight while we monitored his response to the long-acting Toprol-XL and Cardizem CD. His diabetes was managed with Lantus and basal bolus NovoLog therapy. We held his metformin while he was hospitalized. Because he was started on Cardizem CD his atorvastatin was decreased to 40 mg nightly. His serial troponins peaked at 0.3 but on the day of discharge was down to 0.09. Repeat ECGs after conversion to sinus rhythm demonstrated sinus bradycardia rate of 57 bpm with some persistent nonspecific T wave abnormalities. An echocardiogram was performed on the morning of discharge and at the time of this dictation is pending. As far as his other laboratory work-up he had a CMP on admission that demonstrated an elevated BUN of 40 creatinine 1.72 and a glycohemoglobin 8.4%. Repeat BMPs were performed on January 28 and January 30, 2020. Potassium had dipped to a lisa of 3.5 and he was placed on potassium supplementation which brought his potassium up to 4.1. Final BUN and creatinine on discharge was 33 and 1.52. CBC was within normal limits. proBNP was checked on admission and found to be borderline upper limits of normal to slightly elevated at 322 with normal levels being less than 300. Lipid profile was checked while he was here and his triglycerides are low at 85, total cholesterol 97, LDL 53, HDL 27. Because the patient was started on long-acting Cardizem CD and because of his known interaction with atorvastatin I had to reduce his atorvastatin dose from 80 mg at at bedtime to 40 mg at at bedtime. His insomnia was treated with melatonin which did not help his sleeplessness. Therefore on the second night he was treated with Ambien CR 12.5 mg at at bedtime which gave him a very restful sleep. On the morning of discharge he indicated that this is the best sleep that he has had in months. I discharged him with a short course of Ambien to be used on a as needed basis but explained to him that this should not be used for long-term sleep problems. During his hospitalization I spoke with him and his multiple times about his need for reevaluation and treatment of his obstructive sleep apnea and how this leads to congestive heart failure as well as atrial arrhythmias and strokes and dementia. He indicated that when he gets back to [facility] he will follow-up with a sleep specialist to work with him on his obstructive sleep apnea. I also feel that he needs aggressive primary care management of his diabetes mellitus given that his glycohemoglobin A1c was elevated 8.4%. His PCP should consider consolidating his diabetic regimen and getting him on either an SGLT-2 inhibitor or GLP-1 receptor agonist in order to reduce his cardiovascular risks. Patient should have a follow-up BMP next week and he needs to follow-up with his long chain dyeing machine operator to consider having a low-level stress test to evaluate for any ischemic burden. Copies of his echocardiogram were made by the radiology department and given to the patient to share with his long chain dyeing machine operator. I would also consider an outpatient Holter monitor to assess the stability of his atrial dysrhythmias. His echocardiogram report is now available for review and the patient has been given a CD copy of his echocardiogram as well as copy of the written reports. Patient has normal left ventricular size and normal left ventricular systolic function with an ejection fraction 50%. RV size and function is normal. RVSP is 32 mm. He has normal left atrial and right atrial size. He has moderate mitral annular calcifications but no mitral valve stenosis however he has mild to moderate mitral vegetation. The a sending aorta is severely dilated at 4.2 cm although the aortic arch is not well visualized. I discussed all these findings with the patient and his recommend close follow-up with his long chain dyeing machine operator Dr. Yazan Moreland and recommend further evaluation of the rest of the aortic arch and descending thoracic aorta. He could consider a CTA of his chest if his renal function is adequate he could also be considered for BRIANA to further clarify the aortic root and arch. Home Meds and New Rx's Prescriptions: New diltiazem HCl 120 mg Capsule,Extended Release 24hr 120 mg PO HS Qty: 30 RF: 1 Eliquis 5 mg Tablet 5 mg PO BID Qty: 60 RF: 1 zolpidem 6.25 mg Tablet,Ext Release Multiphase 12.5 mg PO HS PRN PRNQty: 5 RF: 0 metoprolol succinate [Toprol XL] 50 mg tablet extended release 24 hr 75 mg PO DAILY Qty: 45 RF: 1 potassium chloride 20 mEq tablet extended release 20 meq PO DAILY Qty: 30 RF: 1 Continued metformin 500 MG tablet 500 mg PO BID RF: 0 clopidogrel [Plavix] 75 MG tablet 75 mg PO DAILY RF: 0 allopurinol 100 MG tablet 150 mg PO DAILY RF: 0 hydrochlorothiazide 12.5 MG capsule 25 mg PO DAILY RF: 0 nitroglycerin 0.4 MG tablet, sublingual 0.4 mg Sublingual PRN PRNRF: 0 aspirin [Aspirin Low-Strength] 81 MG tablet,chewable 81 mg PO DAILY RF: 0 Humalog U-100 Insulin 100 UNIT/ML cartridge 0 - 16 unit SQ PRN PRNRF: 0 fluconazole 50 MG tablet 50 mg PO PRN PRNRF: 0 hydralazine 50 mg Tablet 50 mg PO BID RF: 0 losartan 100 mg Tablet 100 mg PO DAILY RF: 0 lorazepam 0.5 mg Tablet 0.5 mg PO DAILY PRNRF: 0 mometasone 0.1 % Cream 1 applic TOPICAL DAILY PRNRF: 0 Basaglar KwikPen U-100 Insulin 100 unit/mL (3 mL) insulin pen 50 unit SUBCUT BID RF: 0 Changed atorvastatin [Lipitor] 80 MG tablet 40 mg PO HS Qty: 0 RF: 0 Discontinued metoprolol succinate [Toprol XL] 25 MG tablet extended release 24 hr 50 mg PO HS RF: 0 Discharge Instructions Stand Alone Forms: Nursing Discharge Form Activity:: Activity as Tolerated Equipment/Supplies:: No Equipment Needed Diet:: Carb Counting Discharge Orders Discharge Orders: Discharge Order (Routine); Ordered 01/30/20 Ordered By: Evangelista Whiting DS: Summary Status at Discharge Functional status at discharge: independent ambulation Overall status at discharge: patient is back to baseline Mental Status: mental status grossly normal Speech and Movement: speech and movement normal Mood: congruent mood Affect: normal affect Time Spent with Patient providing and/or coordinating discharge services: Greater than 30 minutes Specific discharge activities: Coordinating care with his primary long chain dyeing machine operator, reviewing the studies with the patient, discussing his discharge medications as well as preparation of documentation and sending prescriptions into his pharmacy. Exam Psych Mental Status: mental status grossly normal Speech and Movement: speech and movement normal Mood: congruent mood Affect: normal affect DS: Data Vitals/I&O Vitals and I&O: Vital Signs Temperature 36.2 C L 01/30/20 08:22 Temperature Source Tympanic 01/30/20 08:22 Pulse 67 01/30/20 08:22 Pulse Rhythm Regular 01/30/20 08:15 Pulse 56 L 01/29/20 12:30 Respiratory Rate 20 01/30/20 08:22 Respiratory Effort Non-Labored 01/30/20 08:15 Respiratory Depth Normal 01/30/20 08:15 Respiratory Pattern Normal 01/30/20 08:15 Blood Pressure 147/71 H 01/30/20 08:22 Blood Pressure Mean 93 01/29/20 12:16 Blood Pressure Position Sitting 01/29/20 12:16 Pulse Oximetry 100 01/30/20 08:22 Oxygen Delivery Method Room Air 01/30/20 08:22 Oxygen Flow Rate 0 01/30/20 08:22 Pain Level 0 01/30/20 08:22 Comment 01/30/20 08:22 Intake & Output 01/29/20 01/30/20 01/30/20 23:59 11:59 23:59 Intake Total 240 / 585.333 240 / 240 Balance 240 / -614.667 240 / 240 Weight 99 kg Intake: Oral 240 / 480 240 / 240 Other: Urine Appearance Clear Clear Data Completed and Pending Labs on day of discharge: Labs from last 24 hours 01/30/20 01/30/20 01/29/20 06:53 06:53 12:00 APTT Cancelled Sodium 142 Potassium 4.1 Chloride 107 Carbon Dioxide 29.2 Anion Gap 5.8 BUN 33 H Creatinine 1.52 H Estimated GFR/1.73 m2 45.18 Glucose 88 Calcium 9.2 Troponin I 0.09 H* [facility] Medical History (Updated 01/30/20 @ 14:36 by Evangelista Whiting) Chronic kidney disease (Chronic) Coronary artery disease (Chronic) Diabetes mellitus type 2, insulin dependent (Chronic) Essential hypertension (Chronic) Nephrolithiasis (Chronic) Osteoarthritis (Chronic) Prostate cancer (Chronic) Surgical History (Updated 01/28/20 @ 16:52 by Evangelista Whiting) History of arthroscopic knee surgery (Chronic) History of back surgery (Acute) History of coronary angioplasty with insertion of stent (Acute 06/20/13) Cardiac cath with drug-eluting stents to LAD and to mid circumflex on February 05, [address] Anuel Norris @ [place], [place]; repeat cath 06/20/2013 with 3 stents to Cx; Dr. Anuel Mcginnis's office is at [address] [place] [address]; phone number is [phone] History of rotator cuff surgery (Acute) Social History Smoking/Tobacco Use Status: Never Alcohol Intake: never Drug use: Never Do you feel safe at home: Yes
--- NOTE | 2020-01-30 12:50 | PDOC.CMDIS ---
- If Service Date Differs Date of service: 01/30/20 Time of Service: 12:50 LACE Index Scoring Tool - Questions: Length of Stay (in days): 3 Acuity (Admit via E.D.?): Yes Comorbidities: Diabetes w/o Complication, Any Tumor Care Management Discharge Reason for Hospitalization: Atrial fibrillation Discharge Plan: Guido will be discharged home today, CM contacted [facility] and requested follow up with who was the provider on telephone call day of admission. Guido states he has 5 specialist on the [facility] including cardiology, endocrinolgy, podiatry, and orthopedics. He is amendable to having a primary care here in [place] where he spends the majority of his time. Guido understands the discharge plan, he states his care here at [facility] has been wonderful and he cannot say enough good things about all the staff. He feels confident in the discharge plan and follow up. Patient/Family Education Needs: Discharge edcuation, limitations and follow up plan of care including ask me three and self management.
== END 2020-01-30 14:46 | disposition home or self-care (01) | DRG 281 ==
LOC: ER 15:50 → ICU 01-29 12:38 → MS 01-29 17:22 → ICU 01-31 11:39
PROVIDERS: Admitting Provider Internal Medicine; Emergency Provider Physician Assistant; Visit Provider Internal Medicine
DX: I21.A1 Myocardial infarction type 2 (principal); I47.1 Supraventricular tachycardia; I48.0 Paroxysmal atrial fibrillation; I25.10 Atherosclerotic heart disease of native coronary artery without angina pectoris; Z95.5 Presence of coronary angioplasty implant and graft; I12.9 Hypertensive chronic kidney disease with stage 1 through stage 4 chronic kidney disease, or unspecified chronic kidney disease; N18.9 Chronic kidney disease, unspecified; E11.9 Type 2 diabetes mellitus without complications; Z79.4 Long term (current) use of insulin; N20.0 Calculus of kidney; M19.90 Unspecified osteoarthritis, unspecified site; C61 Malignant neoplasm of prostate; E66.9 Obesity, unspecified; I34.0 Nonrheumatic mitral (valve) insufficiency; I77.810 Thoracic aortic ectasia; E87.6 Hypokalemia
CPT/HCPCS: 36415; 36416; 80048; 80053; 80061; 82962; 93005; 93306; 96361; 96374; 96376; 99233; 99239; 99285; 99291; U0003; 71046; 83036; 83735; 83880; 84443; 84484; 85025; 85610; 85730; 93010; G0378; J3490

== ENCOUNTER 2020-04-12 22:01 | Emergency (ER) | payer MEDICARE, OTHER, SELFPAY ==
[2020-04-12] VITALS (19 sets, daily range): BP systolic 159–214; BP diastolic 69–98; PULSE 64–85; RESP 15–26; TEMP 36.3; O2SAT 94–98
--- NOTE | 2020-04-12 22:00 | RT.EKG_ITS ---
APPROVED REPORT Exam: Resting ECG Patient Location: E HR:66 bpm ECG Measurements Heart Rate 66 AXIS ID 176 P 43 QRSd 91 QRS 28 QT 398 T 60 QTc 418 Conclusion Sinus rhythm...normal P axis, V-rate 60- 99
[2020-04-12] MEDS: Meclizine 25 MG TAB PO (22:44)
--- NOTE | 2020-04-12 22:45 | ED.GENADUL_ITS ---
Discharge Plan Disposition Patient Disposition: AGAINST MEDICAL ADVICE Condition: Serious Discharge Details Clinical Impression: Vertigo, Hypertension Primary Care Provider: Lucia,Local ED Provider: Niels Chávez Home Meds and New Rx's Prescriptions: Continued metformin 500 MG tablet 500 mg PO BID RF: 0 clopidogrel [Plavix] 75 MG tablet 75 mg PO DAILY RF: 0 allopurinol 100 MG tablet 150 mg PO DAILY RF: 0 hydrochlorothiazide 12.5 MG capsule 25 mg PO DAILY RF: 0 nitroglycerin 0.4 MG tablet, sublingual 0.4 mg Sublingual PRN PRNRF: 0 aspirin [Aspirin Low-Strength] 81 MG tablet,chewable 81 mg PO DAILY RF: 0 Humalog U-100 Insulin 100 UNIT/ML cartridge 0 - 16 unit SQ PRN PRNRF: 0 fluconazole 50 MG tablet 50 mg PO PRN PRNRF: 0 hydralazine 50 mg Tablet 50 mg PO BID RF: 0 losartan 100 mg Tablet 100 mg PO DAILY RF: 0 lorazepam 0.5 mg Tablet 0.5 mg PO DAILY PRNRF: 0 mometasone 0.1 % Cream 1 applic TOPICAL DAILY PRNRF: 0 Basaglar KwikPen U-100 Insulin 100 unit/mL (3 mL) insulin pen 50 unit SUBCUT BID RF: 0 diltiazem HCl 120 mg Capsule,Extended Release 24hr 120 mg PO HS Qty: 30 RF: 1 zolpidem 6.25 mg Tablet,Ext Release Multiphase 12.5 mg PO HS PRN PRNQty: 5 RF: 0 metoprolol succinate [Toprol XL] 50 mg tablet extended release 24 hr 75 mg PO DAILY Qty: 45 RF: 1 potassium chloride 20 mEq tablet extended release 20 meq PO DAILY Qty: 30 RF: 1 atorvastatin [Lipitor] 80 MG tablet 40 mg PO HS Qty: 0 RF: 0 cephalexin 500 mg capsule 500 mg PO TID RF: 0 Discharge Instructions Instructions: Diazepam (By mouth), Against Medical Advice (ED) Additional Instructions: Your blood pressure was elevated today. Please be sure to discuss this with your primary care physician. Take your medication as prescribed. Please take Valium as prescribed for anxiety/sleep aid. Please contact your primary care physician to arrange follow-up tomorrow. Based on your presentation to the emergency department tonight, additional diagnostic imaging including MRI of the brain and MRA of the brain and neck was recommended. Return to the ER for any worsening or new concerning symptoms or at any time for further work-up and treatment. Referrals: Evangelista Hopkins [ [facility] STAFF PHYSICIAN] - Medical Decision Making 22:55 --75-year-old male with multiple medical problems including history of coronary artery disease, insulin-dependent diabetes, hypercholesterolemia, hypertension, prostate cancer, here with sudden onset vertigo. No acute focal neurologic deficits noted on exam. Patient is severely hypertensive with systolic blood pressure greater than 200 on arrival. Screening ECG was reviewed and interpreted by me: Sinus rhythm 66 bpm, normal axis, no STEMI, nondiagnostic. Suspect peripheral vertigo. Consider hypertensive emergency. Given risk factors, consider central process. Plan to obtain CTA of the head and neck. Will give meclizine. 2345 -- Labs reviewed: Cr elevated from recent prior 02/01 with GFR <40. Will not risk contrast induced nephropathy given limited utility of study. Plan to admit and obtain MRI/MRA when available in early AM. 00:25 --CT of the head was interpreted by radiology: No acute process. Results were discussed with the patient. Patient notes he is feeling much better after meclizine. Able to ambulate without dizziness. Plan discussed with patient including plan for observation and likely additional diagnostic imaging. Patient declines plan and wishes to leave against medical advise. Patient notes specifically has concerns about chris Covid and would prefer to be discharged and will call his primary care tomorrow to arrange outpatient follow- up. I reiterated my concerns to the patient and explained the risks of leaving prior to completion of workup and treatment. I specifically emphasized the possibility of life-threatening or lifestyle modifying disease that would not be appropriately treated if they leave. Patient verbalized understanding of my concerns and the potential for life threatening or lifestyle modifying disease. Patient has capacity to make informed decision. I again explained my concerns and urged the patient to stay for treatment as outlined. Patient continued to refuse. I recommended that the patient follow-up with primary care physician CARLOS or return to the Emergency Department at any time for further treatment. I will ask for care management to help arrange timely outpatient follow-up for reassessment and determination of MRI warranted. Patient did note he had difficulty sleeping recently requested medication to help him rest tonight. I do think Valium may be helpful both in terms of anxiolytic, sleep aid and for vertigo. He notes he has taken benzodiazepines in the past and tolerated well for sleep aid. I will give him a single tablet to help him tonight. He was instructed to take his antihypertensive medication as prescribed and continue to monitor his blood pressure. Lab Data Lab results reviewed: Yes I reviewed the patient's lab results. Labs: Laboratory Tests Range/Units 04/12/20 04/12/20 04/12/20 22:45 22:45 22:45 WBC (4.4-10.8) 10^3/uL 9.19 RBC (4.36-5.78) 10^6/uL 4.30 L Hgb (13.5-17.5) g/dL 13.6 Hct (40.0-50.0) % 41.0 MCV (80-95) fL 95.3 H MCH (27.0-33.0) pg 31.6 MCHC (32.0-36.0) % 33.2 RDW (11.8-14.1) % 13.6 Plt Count (130-400) 10^3/uL 192 MPV (8.0-11.0) fL 9.4 Immature Gran % 0.3 Neutrophils % 65.0 Lymphocytes % 18.8 Monocytes % 10.6 Eosinophils % 4.9 Basophils % 0.4 Nucleated RBC % % 0 Absolute Neutrophils (1.2-6.7) 10^3/uL 5.97 Absolute Lymphocytes (1.2-3.4) 10^3/uL 1.73 Absolute Monocytes (0.1-0.8) 10^3/uL 0.97 H Absolute Eosinophils (0.0-0.7) 10^3/uL 0.45 Absolute Basophils (0.0-0.2) 10^3/uL 0.04 PT (9.3-11.0) sec 10.4 INR (0.9-1.1) 1.0 APTT (21.0-31.4) sec 22.2 Sodium (136-145) mmol/L 138 Potassium (3.5-5.1) mmol/L 3.7 Chloride (98-107) mmol/L 102 Carbon Dioxide (21.0-32.0) mmol/L 27.4 Anion Gap (3-11) mmol/L 8.6 BUN (7-18) mg/dL 35 H Creatinine (0.70-1.30) mg/dL 1.86 H Estimated GFR/1.73 m2 (mL/min/1.73m2) 35.69 Glucose (74-106) mg/dL 209 H Calcium (8.5-10.1) mg/dL 9.3 Magnesium (1.8-2.4) mg/dL 2.0 Total Bilirubin (0.2-1.0) mg/dL 0.4 AST (15-37) U/L 28 ALT (16-63) U/L 46 Alkaline Phosphatase (46-116) U/L 94 Troponin I (<0.06) ng/mL < 0.05 Total Protein (6.4-8.2) g/dL 6.8 Albumin (3.4-5.0) g/dL 3.5 HPI General Mode of arrival: ambulatory . Date/Time Provider Initiated Documentation: 04/12/20 22:11 . Limitations to Documentation: no limitations . Information obtained by: patient . HPI Narrative: 75-year-old male with multip le medical problems including history of hypertension, hypercholesterolemia, insulin-dependent diabetes, coronary artery disease status post multiple stents, prostate cancer status post radical prostatectomy with recent concern for recurrence, presents tonight with chief complaint of dizziness. Patient notes he was sitting at rest watching TV and startled by his , he stood up rapidly and experienced severe room spinning dizziness. He states that symptoms persisted or worse while moving noting that it felt like he was intoxicated. He denies numbness, weakness, visual changes, headache, chest pain or shortness of breath. Patient checked his blood pressure at home and noted that systolic was greater than 200. This is quite high for him he typically has blood pressure in the 120s - 130s. Patient has been taking medications as prescribed. He does typically take 2 antihypertensives at night and has not taken them tonight yet. Related Data Home Medications Medication Instructions Recorded Confirmed Humalog U-100 Insulin 0 - 16 unit SQ PRN PRN 02/19/15 04/12/20 allopurinol 150 mg PO DAILY 02/19/15 04/12/20 aspirin [Aspirin Low-Strength] 81 mg PO DAILY 02/19/15 04/12/20 clopidogrel [Plavix] 75 mg PO DAILY 02/19/15 04/12/20 fluconazole 50 mg PO PRN PRN 02/19/15 04/12/20 hydrochlorothiazide 25 mg PO DAILY 02/19/15 04/12/20 metformin 500 mg PO BID 02/19/15 04/12/20 nitroglycerin 0.4 mg SUBLINGUAL PRN PRN 02/19/15 04/12/20 [place] U-100 Insulin 50 unit SUBCUT BID 01/28/20 04/12/20 hydralazine 50 mg PO BID 01/28/20 04/12/20 lorazepam 0.5 mg PO DAILY PRN 01/28/20 04/12/20 losartan 100 mg PO DAILY 01/28/20 04/12/20 mometasone 1 applic TOPICAL DAILY PRN 01/28/20 04/12/20 atorvastatin [Lipitor] 40 mg PO HS #0 tab 01/30/20 04/12/20 diltiazem HCl 120 mg PO HS #30 cap 01/30/20 04/12/20 metoprolol succinate [Toprol XL] 75 mg PO DAILY #45 tab 01/30/20 04/12/20 potassium chloride 20 meq PO DAILY #30 tab 01/30/20 04/12/20 zolpidem 12.5 mg PO HS PRN PRN #5 tab 01/30/20 04/12/20 cephalexin 500 mg PO TID 04/12/20 04/12/20 Previous Rx's Medication Instructions Recorded atorvastatin [Lipitor] 40 mg PO HS #0 tab 01/30/20 diltiazem HCl 120 mg PO HS #30 cap 01/30/20 metoprolol succinate [Toprol XL] 75 mg PO DAILY #45 tab 01/30/20 potassium chloride 20 meq PO DAILY #30 tab 01/30/20 zolpidem 12.5 mg PO HS PRN PRN #5 tab 01/30/20 Allergies Allergy/AdvReac Type Severity Reaction Status Date / Time guaifenesin [From Robitussin] AdvReac Intermediate Palpitation Unverified 01/28/20 10:21 s. General Stated Complaint: Dizzy/Sync MEREDITH: 2 Review of Systems All systems reviewed & are unremarkable except as noted in HPI and below Constitutional Constitutional: Denies fever(s) and Denies headache(s) Eyes Eyes: Denies loss of vision ENT Ears, Nose, Mouth, and Throat: Reports dizziness and Denies headache(s) Cardiovascular Cardiovascular: Denies chest pain, Denies syncope and Denies dyspnea Respiratory Respiratory: Denies dyspnea Neurologic Neurologic: Denies abnormal speech, Reports dizziness, Denies syncope, Denies headache(s), Denies localized weakness, Denies loss of vision and Denies sensory deficit Comments: Chronic ptosis right eye times years [facility] Medical History Chronic kidney disease Coronary artery disease Diabetes mellitus type 2, insulin dependent Essential hypertension Nephrolithiasis Osteoarthritis Prostate cancer Surgical History History of arthroscopic knee surgery History of back surgery History of coronary angioplasty with insertion of stent (06/20/13) Cardiac cath with drug-eluting stents to LAD and to mid circumflex on February 05, [address] Anuel Norris @ [place], [place]; repeat cath 06/20/2013 with 3 stents to Cx; Dr. Anuel Mcginnis's office is at [address] [place] [address]; phone number is [phone] History of rotator cuff surgery Social History Smoking/Tobacco Use Status: Never Smoking risk assessment performed?: Yes Alcohol Intake: never Drug use: Never Do you feel safe at home: Yes Exam Const General: cooperative and no acute distress HENMT Mouth: moist mucous membranes Eyes Alignment and Position: alignment normal Conjunctivae: normal conjunctivae Sclera: normal sclerae Pupils: PERRL and accommodation normal EOM: EOM intact bilaterally Neck Neck: trachea midline and supple Resp Auscultation: clear to auscultation bilaterally, no rales, no rhonchi and no wheezes Cardio Rate: regular rate and not tachycardic Rhythm: regular rhythm GI Palpation: soft, not firm, no guarding, no masses, not rigid and nontender Skin General skin exam: no rashes or lesions noted Neuro General: patient alert, patient awake, patient oriented x3 and tone normal Cranial Nerves: CN's II-XI intact bilaterally Cognition: normal cognition Speech: speech normal Motor: muscle tone normal throughout and strength 5/5 throughout Sensory Exam: no sensory deficits noted Other: [id number] intact, rapid alternating movements intact, negative Romberg, hints exam negative Extrem General: no edema Psych Appearance: grossly normal Mental Status: mental status grossly normal Speech and Movement: speech and movement normal Course Vital Signs Vital signs: Vital Signs Temperature 36.3 C L 04/12/20 22:06 Pulse 64 04/12/20 22:06 Respiratory Rate 16 04/12/20 22:06 Pulse Oximetry 98 04/12/20 22:06 Temperature 36.3 C L 04/12/20 22:06 Pulse 64 04/12/20 22:06 Respiratory Rate 16 04/12/20 22:17 Respiratory Effort Non-Labored 04/12/20 22:17 Respiratory Depth Normal 04/12/20 22:17 Respiratory Pattern Normal 04/12/20 22:17 Blood Pressure 214/98 H 04/12/20 22:17 Pulse Oximetry 98 04/12/20 22:06 Pain Level 2 04/12/20 22:06
[2020-04-12 22:57] LABS: Abs Immature Grans 0.03 10^3/uL (0.0-0.06); Absolute Basophil Count 0.04 10^3/uL (0.0-0.2); Absolute Eosinophil Count 0.45 10^3/uL (0.0-0.7); Absolute Lymphocyte Count 1.73 10^3/uL (1.2-3.4); Absolute Monocyte Count 0.97 10^3/uL (0.1-0.8); Absolute Neutrophil Count 5.97 10^3/uL (1.2-6.7); Basophils % 0.4; Eosinophils % 4.9; HGB 13.6 g/dL (13.5-17.5); Immature Grans % 0.3; Lymphocytes % 18.8; MCH 31.6 pg (27.0-33.0); MCHC 33.2 % (32.0-36.0); MCV 95.3 fL (80-95); MPV 9.4 fL (8.0-11.0); Monocytes % 10.6; Nucleated RBC 0 %; Platelet Count 192 10^3/uL (130-400); RDW 13.6 % (11.8-14.1); RDW-SD 47.8 fL; WBC 9.19 10^3/uL (4.4-10.8)
[2020-04-12] MEDS: Normal Saline 1,000 ML 150 ML IV (23:01)
[2020-04-12 23:09] LABS: PTT Activated 22.2 sec (21.0-31.4); Prothrombin Time 10.4 sec (9.3-11.0)
[2020-04-12 23:12] LABS: ALT 46 U/L (16-63); AST 28 U/L (15-37); Albumin 3.5 g/dL (3.4-5.0); Alkaline Phosphatase 94 U/L (46-116); Anion Gap 8.6 mmol/L (3-11); BUN 35 mg/dL (7-18); Bilirubin, Total 0.4 mg/dL (0.2-1.0); CO2 27.4 mmol/L (21.0-32.0); CREATININE 1.86 mg/dL (0.70-1.30); Calcium 9.3 mg/dL (8.5-10.1); Chloride 102 mmol/L (98-107); Estimated GFR 35.69 (mL/min/1.73m2); Glucose 209 mg/dL (74-106); Potassium 3.7 mmol/L (3.5-5.1); Sodium 138 mmol/L (136-145); Total Protein 6.8 g/dL (6.4-8.2)
--- NOTE | 2020-04-12 23:15 | DI.CT_ITS ---
EXAM: CT HEAD WO CLINICAL HISTORY: vertigo. TECHNIQUE: Imaging Protocol: Axial computed tomography images with coronal and sagittal reformatted images were created and reviewed COMPARISON: No exams were available for comparison FINDINGS: There is mild cerebral atrophy. No evidence of acute intracranial hemorrhage, mass effect, or midline shift. The orbital structures are unremarkable. The temporal bone structures appear intact. Calvarium: Normal. Visualized Paranasal sinuses/Mastoids: Clear. IMPRESSION: Mild cerebral atrophy, otherwise unremarkable cranial CT. RADIATION DOSE DELIVERED: 840.04mGy.cm Total DLP 840.04mGy.cm Total DLP DATA REPOSITORY: All CT scans at this facility are submitted to the National Radiology Data Registry (NRDR) Dose Index Registry (DIR) with the [employer] (ACR). RADIATION OPTIMIZATION: All CT scans at this facility use at least one of these dose optimization te chniques: automated exposure control; mA and/or kV adjustment per patient size (includes targeted exa ms where dose is matched to clinical indication); or iterative reconstruction.
[2020-04-12 23:16] LABS: Troponin I < 0.05 ng/mL (<0.06)
--- NOTE | 2020-04-12 23:58 | DI.VRAD_ITS ---
PROCEDURE INFORMATION: Exam: CT Head Without Contrast Exam date and time: 04/12/2020 11:27 PM Age: 75 years old Clinical indication: Dizziness TECHNIQUE: Imaging protocol: Computed tomography of the head without contrast. Radiation optimization: All CT scans at this facility use at least one of these dose optimization techniques: automated exposure control; mA and/or kV adjustment per patient size (includes targeted exams where dose is matched to clinical indication); or iterative reconstruction. Other technique: STROKE PROTOCOL was implemented. COMPARISON: No relevant prior studies available. FINDINGS: Brain: Normal. No hemorrhage. Unremarkable white matter. No mass effect. Cerebral ventricles: No ventriculomegaly. Bones/joints: Unremarkable. No acute fracture. Paranasal sinuses: Visualized sinuses are unremarkable. No fluid levels. Mastoid air cells: Visualized mastoid air cells are well aerated. Soft tissues: Unremarkable. IMPRESSION: No acute intracranial abnormality. ASSESSMENT: ASPECTS ([place]onna Stroke Program Early CT Score) is 10. Dictated and Authenticated by: Andrea Dukes MD. Ordering:MICHAEL Bowser MD
[2020-04-13] VITALS: PULSE 80; RESP 19; O2SAT 96
[2020-04-13 00:03] VITALS: BP 159/65; PULSE 73; PULSE 76; RESP 22; O2SAT 98
[2020-04-13 00:10] VITALS: PULSE 84; RESP 17
[2020-04-13 00:20] VITALS: PULSE 77; RESP 19
[2020-04-13 00:36] VITALS: BP 159/69; PULSE 66; RESP 18; O2SAT 98
[2020-04-13] MEDS: diazePAM 2 MG TAB PO (00:36)
--- NOTE | 2020-04-13 10:53 | PDOC.ERCMACT ---
- If Service Date Differs Date of service: 04/13/20 Time of Service: 10:53 Care Management Activity Note Guido is seen in the ED on 04/12/20 for new onset vertigo and high blood pressure. ISAAC contacts Guido's PCP's office by telephone today to request a follow up appointment to the ED visit. ISAAC is informed that Guido has an appointment scheduled for today, Thursday, April 13, 2020, at 1:30 pm.
== END 2020-04-13 00:40 | disposition left against medical advice (07) ==
PROVIDERS: Emergency Provider Student in an Organized Health Care Education/Training Program
DX: R42 Dizziness and giddiness (principal); I10 Essential (primary) hypertension; E11.22 Type 2 diabetes mellitus with diabetic chronic kidney disease; N18.9 Chronic kidney disease, unspecified; Z79.4 Long term (current) use of insulin; Z53.29 Procedure and treatment not carried out because of patient's decision for other reasons
CPT/HCPCS: 80053; 93005; 96360; 96361; 99284; 70450; 83735; 84484; 85025; 85610; 85730; 93010

== ENCOUNTER 2020-05-11 14:11 | Outpatient (REF) | payer MEDICARE, OTHER, SELFPAY ==
[2020-05-11 18:43] LABS: HCT 42.4 % (40.0-50.0); HGB 14.1 g/dL (13.5-17.5); MCH 31.8 pg (27.0-33.0); MCHC 33.3 % (32.0-36.0); MCV 95.7 fL (80-95); MPV 10.1 fL (8.0-11.0); Platelet Count 200 10^3/uL (130-400); RBC 4.43 10^6/uL (4.36-5.78); RDW 13.5 % (11.8-14.1); RDW-SD 47.8 fL; WBC 9.38 10^3/uL (4.4-10.8)
[2020-05-11 19:05] LABS: Hemoglobin A1C 8.6 % (<5.7)
[2020-05-11 19:14] LABS: Albumin 3.8 g/dL (3.4-5.0); Anion Gap 8.1 mmol/L (3-11); BUN 36 mg/dL (7-18); CO2 24.9 mmol/L (21.0-32.0); CREATININE 1.89 mg/dL (0.70-1.30); Calcium 8.9 mg/dL (8.5-10.1); Calculated LDL 52 mg/dL (<100); Chloride 106 mmol/L (98-107); Cholesterol 109 mg/dL (<200); Estimated GFR 35.04 (mL/min/1.73m2); Glucose 112 mg/dL (74-106); HDL Cholesterol 31 mg/dL (40-60); Potassium 4.3 mmol/L (3.5-5.1); Sodium 139 mmol/L (136-145); Triglyceride 132 mg/dL (<150)
[2020-05-11 19:42] LABS: PHOSPHORUS 3.1 mg/dL (2.6-4.7); Uric Acid 4.8 mg/dL (3.5-7.2)
[2020-05-14 09:55] LABS: Parathyroid Hormone,Intact 38 pg/mL (19-88)
== END 2020-05-11 14:31 ==
LOC: NCHCN 14:11
PROVIDERS: Visit Provider Family Medicine
DX: N18.30 Chronic kidney disease, stage 3 unspecified (principal); E78.00 Pure hypercholesterolemia, unspecified; E11.22 Type 2 diabetes mellitus with diabetic chronic kidney disease; Z99.2 Dependence on renal dialysis
CPT/HCPCS: 80048; 80061; 85027; 82040; 83036; 83735; 83970; 84100; 84550

== ENCOUNTER 2020-10-16 13:24 | Outpatient (REF) | payer MEDICARE, OTHER, SELFPAY ==
[2020-10-16 19:12] LABS: BUN 28 mg/dL (7-18); CREATININE 1.7 mg/dL (0.70-1.30); Calcium 9.1 mg/dL (8.5-10.1); Chloride 109 mmol/L (98-107); Glucose 101 mg/dL (74-106); Potassium 5.2 mmol/L (3.5-5.1); Sodium 145 mmol/L (136-145)
== END 2020-10-16 13:25 | disposition home or self-care (01) ==
LOC: NCHCN 13:24
PROVIDERS: Visit Provider Family Medicine
DX: N18.30 Chronic kidney disease, stage 3 unspecified (principal)
CPT/HCPCS: 80048

== ENCOUNTER 2020-11-01 07:47 | Outpatient (REF) | payer MEDICARE, OTHER, SELFPAY ==
[2020-11-02 08:50] LABS: HCT 43.6 % (40.0-50.0); HGB 14.4 g/dL (13.5-17.5); MCH 31.6 pg (27.0-33.0); MCV 95.8 fL (80-95); MPV 10.1 fL (8.0-11.0); Platelet Count 216 10^3/uL (130-400); RBC 4.55 10^6/uL (4.36-5.78); RDW 14.2 % (11.8-14.1); RDW-SD 50.4 fL; WBC 9.71 10^3/uL (4.4-10.8)
[2020-11-02 09:32] LABS: Anion Gap 11.8 mmol/L (3-11); BUN 36 mg/dL (7-18); CO2 25.2 mmol/L (21.0-32.0); CREATININE 1.8 mg/dL (0.70-1.30); Calcium 9.3 mg/dL (8.5-10.1); Chloride 104 mmol/L (98-107); Estimated GFR 37.07 (mL/min/1.73m2); Glucose 254 mg/dL (74-106); Sodium 141 mmol/L (136-145); TSH (W/Ref FT4) 0.97 uIU/mL (0.36-3.74); Vitamin B12 1054 pg/mL (193-986)
== END 2020-11-01 07:48 | disposition home or self-care (01) ==
LOC: NCHCN 07:47
PROVIDERS: Visit Provider Family Medicine
DX: R53.83 Other fatigue (principal); E87.5 Hyperkalemia; Z99.2 Dependence on renal dialysis
CPT/HCPCS: 80048; 85027; 82607; 84443

== ENCOUNTER 2021-01-17 11:02 | Emergency (ER) | payer MEDICARE, OTHER, SELFPAY ==
[2021-01-17 11:07] VITALS: BP 180/76; PULSE 66; RESP 14; TEMP 36.8; O2SAT 97
--- NOTE | 2021-01-17 11:15 | DI.RAD_ITS ---
Exam(s) XR HAND RT COMPLETE EXAM: XR HAND RT COMPLETE CLINICAL HISTORY: crush injury on thursday. TECHNIQUE: 2D digital imaging was performed. COMPARISON: No exams were available for comparison FINDINGS: No evidence of acute fracture or dislocation. Deformity at the midshaft of the 5th metacarpal is pro bably healed fracture site. There are no acute fractures evident. Multilevel degenerative changes i n the DIP joints are noted. Most evident in the 2nd-index finger. No radiopaque foreign body. No o sseous lesions nor erosions. IMPRESSION: DATA REPOSITORY: RADIATION DOSE DELIVERED:
--- NOTE | 2021-01-17 11:21 | W.ED.GENAD ---
Discharge Plan Disposition Patient Disposition: HOME Condition: Stable Discharge Details Clinical Impression: Bursitis, olecranon, Finger sprain Primary Care Provider: Lucia,Local ED Provider: Evangelista Uriarte [place] Meds and New Rx's Prescriptions: Continued clopidogrel [Plavix] 75 MG tablet 75 mg PO DAILY RF: 0 allopurinol 100 MG tablet 150 mg PO DAILY RF: 0 nitroglycerin 0.4 MG tablet, sublingual 0.4 mg Sublingual PRN PRNRF: 0 aspirin [Aspirin Low-Strength] 81 MG tablet,chewable 81 mg PO DAILY RF: 0 Humalog U-100 Insulin 100 UNIT/ML cartridge 0 - 16 unit SQ PRN PRNRF: 0 fluconazole 50 MG tablet 50 mg PO PRN PRNRF: 0 hydralazine 50 mg Tablet 50 mg PO BID RF: 0 losartan 100 mg Tablet 100 mg PO DAILY RF: 0 lorazepam 0.5 mg Tablet 0.5 mg PO DAILY PRNRF: 0 mometasone 0.1 % Cream 1 applic TOPICAL DAILY PRNRF: 0 Basaglar KwikPen U-100 Insulin 100 unit/mL (3 mL) insulin pen 50 unit SUBCUT BID RF: 0 metoprolol succinate [Toprol XL] 50 mg tablet extended release 24 hr 75 mg PO DAILY Qty: 45 RF: 1 atorvastatin [Lipitor] 80 MG tablet 40 mg PO HS Qty: 0 RF: 0 pantoprazole 40 mg tablet,delayed release (DR/EC) 40 mg PO DAILY RF: 0 diltiazem HCl 120 mg capsule,extended release 24hr 120 mg PO BID RF: 0 cephalexin 500 mg capsule 500 mg PO TID RF: 0 Discharge Instructions Instructions: Finger Fracture (ED), Elbow Bursitis (ED) Additional Instructions: Wear Badias wrap around your elbow and finger splint until reevaluation with orthopedics. Rest, elevate, cool compresses every 2 hours for 20 minutes. Please watch for new or worsening symptoms and return to the ER for any concerns. I have placed you on the orthopedic list, please give their office a call later today or tomorrow to set up outpatient orthopedic reevaluation Referrals: Balaji Kang MD [ [facility] STAFF PHYSICIAN] - Discharge Data Discharge Date/Time-TO BE ENTERED AT DEPARTURE: 01/17/21 13:25 Medical Decision Making 75-year-old gentleman presents with atraumatic swelling to the posterior elbow. Examination is consistent with a noninfected olecranon bursitis. Given there is no trauma I do not believe x-ray of the elbow beneficial. We discussed conservative measures such as Abdias wrap and orthopedic follow-up. Patient initially not here for his right fifth digit injury but is agreeable to an x-ray. X-ray without obvious fracture, appears to be old injury to the fifth metacarpal. Discussed x-ray findings with patient. Given his pain, swelling, limited range of motion, will place into a splint, he will follow up with orthopedics for his elbow and at that appointment will mention his finger discomfort as well. Patient agreeable to this plan and has no additional questions or concerns. Medical Records Medical records reviewed: Yes I reviewed the patient's medical records. Imaging Data Radiologic Study: Attestation: I personally reviewed and interpreted this imaging study as follows: Imaging: X-Ray Radiologist's impression: Exam(s) XR HAND RT COMPLETE EXAM: XR HAND RT COMPLETE CLINICAL HISTORY: crush injury on thursday. TECHNIQUE: 2D digital imaging was performed. COMPARISON: No exams were available for comparison FINDINGS: No evidence of acute fracture or dislocation. Deformity at the midshaft of the 5th metacarpal is probably healed fracture site. There are no acute fractures evident. Multilevel degenerative changes in the DIP joints are noted. Most evident in the 2nd-index finger. No radiopaque foreign body. No osseous lesions nor erosions. HPI General Mode of arrival: ambulatory. Date/Time Provider Initiated Documentation: 01/17/21 11:15. Limitations to Documentation: no limitations. Information obtained by: patient. HPI Narrative: This is a 75-year-old gentleman, [id number], past medical history of chronic renal disease, CAD, diabetes, hypertension, osteoarthritis, presenting to the ER with painless right elbow swelling that began yesterday. Patient does state that at home he had a crush injury to his right fifth digit over the weekend, is improving. Wonders if this may have anything to do with elbow swelling. Also reports that he had an outpatient nuclear study performed yesterday, no IV access, procedure seem to go normally, but now wonders if his procedure yesterday has anything to do with his elbow swelling. Denies pain, redness, fever, numbness, tingling, weakness, any other symptoms at this time. Has not taken any medication for his symptoms. Related Data Home Medications Medication Instructions Recorded Confirmed Humalog U-100 Insulin 0 - 16 unit SQ PRN PRN 02/19/15 01/17/21 allopurinol 150 mg PO DAILY 02/19/15 01/17/21 aspirin [Aspirin Low-Strength] 81 mg PO DAILY 02/19/15 01/17/21 clopidogrel [Plavix] 75 mg PO DAILY 02/19/15 01/17/21 fluconazole 50 mg PO PRN PRN 02/19/15 01/17/21 nitroglycerin 0.4 mg SUBLINGUAL PRN PRN 02/19/15 01/17/21 Basaglar KwikPen U-100 Insulin 50 unit SUBCUT BID 01/28/20 01/17/21 hydralazine 50 mg PO BID 01/28/20 01/17/21 lorazepam 0.5 mg PO DAILY PRN 01/28/20 01/17/21 losartan 100 mg PO DAILY 01/28/20 01/17/21 mometasone 1 applic TOPICAL DAILY PRN 01/28/20 01/17/21 atorvastatin [Lipitor] 40 mg PO HS #0 tab 01/30/20 01/17/21 metoprolol succinate [Toprol XL] 75 mg PO DAILY #45 tab 01/30/20 01/17/21 cephalexin 500 mg PO TID 04/12/20 01/17/21 diltiazem HCl 120 mg PO BID 01/17/21 pantoprazole 40 mg PO DAILY 01/17/21 01/17/21 Previous Rx's Medication Instructions Recorded atorvastatin [Lipitor] 40 mg PO HS #0 tab 01/30/20 metoprolol succinate [Toprol XL] 75 mg PO DAILY #45 tab 01/30/20 Allergies Allergy/AdvReac Type Severity Reaction Status Date / Time guaifenesin [From Robitussin] AdvReac Intermediate Palpitation Unverified 01/17/21 11:16 s. General Stated Complaint: Orthopedic MEREDITH: 4 Review of Systems Constitutional Constitutional: Denies fever(s) Musculoskeletal Musculoskeletal: Denies arthralgias, Denies numbness and Reports stiffness Integumentary/Breasts Skin/Breast: Denies rash Neurologic Neurologic: Denies numbness [facility] Medical History Chronic kidney disease Coronary artery disease Diabetes mellitus type 2, insulin dependent Essential hypertension Nephrolithiasis Osteoarthritis Prostate cancer Surgical History History of arthroscopic knee surgery History of back surgery History of coronary angioplasty with insertion of stent (06/20/13) Cardiac cath with drug-eluting stents to LAD and to mid circumflex on February 05, [address] Anuel Norris @ [place], [place]; repeat cath 06/20/2013 with 3 stents to Cx; Dr. Anuel Mcginnis's office is at [address] [place] [address]; phone number is [phone] History of rotator cuff surgery Social History Smoking/Tobacco Use Status: Never Smoking risk assessment performed?: Yes Alcohol Intake: never Drug use: Never Do you feel safe at home: Yes Exam Const General: cooperative, healthy appearing, comfortable and no acute distress Orientation: alert and awake [facility] Head: normal to inspection, normocephalic and atraumatic Eyes General: appearance normal, both eyes and all related structures Conjunctivae: conjunctivae normal Neck Neck: normal visual inspection, trachea midline and supple Resp Effort & Inspection: normal respiratory effort and able to speak in complete sentences Cardio Rate: regular rate Rhythm: regular rhythm Skin General skin exam: no rashes or lesions noted Neuro General: patient alert, patient awake, moves all extremities and no focal motor deficits Cognition: normal cognition Speech: speech normal Gait: normal gait Sensory Exam: no sensory deficits noted Extrem General: capillary refill normal Other: Right upper extremity, shoulder unremarkable. Elbow full range of motion, no erythema, tenderness. There is posterior swelling consistent with electron bursitis. Neuro, vascular, tendon intact. Skin intact. Wrist unremarkable. Right fifth digit full extension limited flexion secondary to discomfort. Diffuse mild swelling and ecchymosis from the MCP to the DIP joint. Normal capillary refill. Normal radial pulse. Psych Appearance: grossly normal Mental Status: mental status grossly normal Course Vital Signs Vital signs: Vital Signs Temperature 36.8 C 01/17/21 11:07 Pulse 66 01/17/21 11:07 Respiratory Rate 14 01/17/21 11:07 Blood Pressure 180/76 H 01/17/21 11:07 Pulse Oximetry 97 01/17/21 11:07 Temperature 36.8 C 01/17/21 11:07 Temperature Source Tympanic 01/17/21 11:07 Pulse 66 01/17/21 11:07 Respiratory Rate 14 01/17/21 11:07 Blood Pressure 180/76 H 01/17/21 11:07 Pulse Oximetry 97 01/17/21 11:07 Oxygen Delivery Method Room Air 01/17/21 11:07 Oxygen Flow Rate 0 01/17/21 11:07 Pain Level 0 01/17/21 11:07
== END 2021-01-17 13:25 | disposition home or self-care (01) ==
PROVIDERS: Emergency Provider Physician Assistant
DX: M70.21 Olecranon bursitis, right elbow (principal); S67.196A Crushing injury of right little finger, initial encounter; S63.696A Other sprain of right little finger, initial encounter; X58.XXXA Exposure to other specified factors, initial encounter
CPT/HCPCS: 29130; 99283; 73130

== ENCOUNTER 2021-03-06 12:53 | Outpatient (REF) | payer MEDICARE, OTHER, SELFPAY ==
--- NOTE | 2021-03-06 14:00 | SKI_PTH ---
PATIENT: Daniel Alicia LOC: [facility] U#:[id number] AGE/SX: 75/M ROOM: RE03/06/[address]: Evangelista Hopkins : 1945 BED: DIS: 03/06/2021 SPEC #: [id number] RECD: 03/07/21 12:56 STATUS: STAN REQ #: [id number] NAIF: 03/06/21 14:[address]: Evangelista Hopkins DEPT: Surgical Specimen RECD BY: Lily Navarrete ENTERED: 03/07/21 12:57 SP TYPE: CATINA CHAUDHRY DR: No Local Tissues: 1 - SKIN BIOPSY(SHAVE/PUNCH) Procedures: SKIN LEVEL 4 Comments: [id number]
== END 2021-03-06 12:54 | disposition home or self-care (01) ==
LOC: NCHCN 12:53
PROVIDERS: Visit Provider Family Medicine
DX: L82.1 Other seborrheic keratosis (principal)
CPT/HCPCS: 88305

== ENCOUNTER 2021-10-21 16:07 | Outpatient (REF) | payer MEDICARE, SELFPAY ==
[2021-10-21 22:05] LABS: Iron 100 ug/dL (65-175); Total Iron Binding Capacity 202 ug/dL (250-450); Transferrin Sat 50 % (20-55)
[2021-10-21 22:25] LABS: Ferritin 398 ng/mL (26-388); Folate > 20.0 ng/mL (8.6-20.0); Vitamin B12 854 pg/mL (193-986)
== END 2021-10-21 16:08 | disposition home or self-care (01) ==
LOC: NCHCN 16:07
PROVIDERS: Visit Provider Family Medicine
DX: D64.9 Anemia, unspecified (principal); Z99.2 Dependence on renal dialysis; N18.30 Chronic kidney disease, stage 3 unspecified
CPT/HCPCS: 82607; 82728; 82746; 83540; 83550

== ENCOUNTER 2022-03-17 00:20 | Emergency (ER) | payer MEDICARE, OTHER, SELFPAY ==
[2022-03-17 00:37] VITALS: PULSE 59; RESP 22; TEMP 36.9; O2SAT 99
[2022-03-17 00:54] VITALS: BP 183/75
--- NOTE | 2022-03-17 01:02 | W.ED.GENAD ---
Discharge Plan Disposition Patient Disposition: HOME Condition: Stable Discharge Details Clinical Impression: COVID-19 Primary Care Provider: Evangelista Hopkins ED Provider: Halima Hernandez Home Meds and New Rx's Prescriptions: Continued allopurinol 100 MG tablet 150 mg PO DAILY nitroglycerin 0.4 MG tablet, sublingual 0.4 mg Sublingual PRN PRN aspirin [Aspirin Low-Strength] 81 MG tablet,chewable 81 mg PO DAILY Humalog U-100 Insulin 100 UNIT/ML cartridge 0 - 16 unit SQ PRN PRN fluconazole 50 MG tablet 50 mg PO PRN PRN hydralazine 50 mg Tablet 50 mg PO BID losartan 100 mg Tablet 100 mg PO DAILY lorazepam 0.5 mg Tablet 0.5 mg PO DAILY PRN (Reason: Anxiety) mometasone 0.1 % Cream 1 applic TOPICAL DAILY PRN insulin glargine [Basaglar KwikPen U-100 Insulin] 100 unit/mL (3 mL) insulin pen 50 unit SUBCUT QAM Label Comments: INJECT 50 UNITS TWICE A DAY Rx Instructions: 50UNITS QAM AND 45UNITS AT NIGHT atorvastatin [Lipitor] 80 MG tablet 40 mg PO HS Qty: 0 0RF pantoprazole 40 mg tablet,delayed release (DR/EC) 40 mg PO DAILY PRN (Reason: Acid Reflux) Label Comments: TAKE ONE TABLET BY MOUTH EVERY DAY diltiazem HCl 120 mg capsule,extended release 24hr 120 mg PO BID metoprolol succinate [Toprol XL] 50 mg tablet extended release 24 hr 25 mg PO DAILY Farxiga 10 mg Tablet 10 mg PO DAILY No Action clopidogrel [Plavix] 75 mg Tablet 75 mg PO DAILY Discharge Instructions Instructions: COVID-19 (Coronavirus Disease 2019) (ED) Additional Instructions: You received a monoclonal antibody infusion to prevent progression to severe illness or related to the COVID-19 virus. Drink plenty of fluids and get plenty of rest. Take Tylenol as needed and directed for pain. Follow-up with your primary care doctor in 1 week. Return to the emergency department with any worsening or new concerning symptoms such as difficulty breathing, persistent vomiting or any other concerns. Discharge Data Discharge Physician: Halima Hernandez Medical Decision Making 77-year-old male with a history of prostate cancer, diabetes, hypertension, hyperlipidemia, coronary artery disease, chronic kidney disease, atrial fibrillation on aspirin and Plavix with 2 positive at home COVID test last night presenting for request for antiviral treatment. Patient appears comfortable and nontoxic. His vitals are reassuring with normal respiratory rate, oxygen saturation and he is afebrile. He is breathing comfortably. Considering patient's history of chronic kidney disease and dual antiplatelet therapy, paxlovid treatment likely not ideal or recommended so will proceed with monoclonal antibody infusion. Pt tolerated antibody infusion well and was discharged to home. Advised to follow up with the primary care doctor for re-evaluation. Usual and customary return precautions given prior to discharge. HPI General Mode of arrival: ambulatory. Date/Time Provider Initiated Documentation: 03/17/22 00:51. Limitations to Documentation: no limitations. Information obtained by: patient. HPI Narrative: Patient is a 77-year-old male with a history of prostate cancer, diabetes, hypertension, hyperlipidemia, atrial fibrillation on aspirin and Plavix presents for request for antiviral treatment for COVID. Patient states he developed nasal congestion, sore throat, postnasal drip, cough fatigue and fever yesterday. Patient states he took 2 at home COVID test last night which were positive. Patient states he is concerned due to his risk factors and would like any treatment possible. He states he has received a total of 3 COVID vaccines. He denies any chest pain or difficulty Related Data Home Medications Medication Instructions Recorded Confirmed allopurinol 100 mg tablet 150 mg PO DAILY 02/19/15 03/17/22 aspirin 81 mg chewable tablet 81 mg PO DAILY 02/19/15 03/17/22 (Aspirin Low-Strength) fluconazole 50 mg tablet 50 mg PO PRN PRN 02/19/15 03/17/22 insulin lispro 100 unit/mL 0 - 16 unit SQ PRN PRN 02/19/15 03/17/22 subcutaneous cartridge (Humalog U-100 Insulin) nitroglycerin 0.4 mg sublingual 0.4 mg sublingual PRN PRN 02/19/15 03/17/22 tablet hydralazine 50 mg tablet 50 mg PO BID 01/28/20 03/17/22 insulin glargine 100 unit/mL (3 50 unit subcut QAM 01/28/20 03/17/22 mL) subcutaneous pen (Basaglar KwikPen U-100 Insulin) lorazepam 0.5 mg tablet 0.5 mg PO DAILY PRN Anxiety 01/28/20 03/17/22 losartan 100 mg tablet 100 mg PO DAILY 01/28/20 03/17/22 mometasone 0.1 % topical cream 1 applic topical DAILY PRN 01/28/20 03/17/22 atorvastatin 80 mg tablet (Lipitor) 40 mg PO HS #0 tabs 01/30/20 03/17/22 diltiazem HCl 120 mg 120 mg PO BID 01/17/21 03/17/22 capsule,extended release 24 hr pantoprazole 40 mg tablet,delayed 40 mg PO DAILY PRN Acid Reflux 01/17/21 03/17/22 release clopidogrel 75 mg tablet (Plavix) 75 mg PO DAILY 03/17/22 03/17/22 dapagliflozin 10 mg tablet 10 mg PO DAILY 03/17/22 03/17/22 (Farxiga) metoprolol succinate 50 mg 25 mg PO DAILY 03/17/22 03/17/22 tablet,extended release 24 hr (Toprol XL) Previous Rx's Medication Instructions Recorded atorvastatin 80 mg tablet (Lipitor) 40 mg PO HS #0 tabs 01/30/20 Allergies Allergy/AdvReac Type Severity Reaction Status Date / Time guaifenesin [From Robitussin] AdvReac Intermediate Palpitation Unverified 08/06/21 09:21 s. General Stated Complaint: RespSymp MEREDITH: 4 Review of Systems All systems reviewed & are unremarkable except as noted in HPI and below Constitutional Constitutional: Reports as per HPI, Denies chills and Denies fever(s) Eyes Eyes: Denies blurry vision ENT Ears, Nose, Mouth, and Throat: Denies dizziness, Reports nasal congestion, Reports nasal discharge, Reports sore throat and Denies throat swelling Cardiovascular Cardiovascular: Denies chest pain and Denies dyspnea Respiratory Respiratory: Denies cough and Denies dyspnea Gastrointestinal Gastrointestinal: Denies abdominal pain, Denies diarrhea and Denies vomiting Genitourinary Genitourinary: Denies hematuria and Denies dysuria Musculoskeletal Musculoskeletal: Denies back pain and Denies numbness Integumentary/Breasts Skin/Breast: Denies lesions and Denies rash Neurologic Neurologic: Denies dizziness, Denies localized weakness and Denies numbness Allergic/Immunologic Allergic/Immunologic: Denies throat swelling PFSH All Active Problems (Updated 03/17/22 @ 01:09 by Halima Hernandez DO) COVID-19 (Acute) Anterior epistaxis (Acute) Bursitis, olecranon (Acute) Finger sprain (Acute) Ascending aorta dilatation (Chronic) Osteoarthritis (Chronic) Nephrolithiasis (Chronic) URI (upper respiratory infection) (Acute) Medical History (Updated 03/17/22 @ 01:09 by Halima Hernandez DO) Atrial fibrillation Chronic kidney disease Coronary artery disease Diabetes mellitus type 2, insulin dependent Essential hypertension Prostate cancer Surgical History (Updated 08/07/21 @ 06:28 by Romel Hansen MD) History of arthroscopic knee surgery History of back surgery History of coronary angioplasty with insertion of stent (06/20/13) Cardiac cath with drug-eluting stents to LAD and to mid circumflex on February 05, [address] Anuel Norris @ [place], [place]; repeat cath 06/20/2013 with 3 stents to Cx; Dr. Anuel Mcginnis's office is at [address] [place] [address]; phone number is [phone] History of prostatectomy History of rotator cuff surgery Social History Smoking/Tobacco Use Status: Never Smoking risk assessment performed?: Yes Alcohol Intake: never Drug use: Never Substance use type: does not use Do you feel safe at home: Yes Do you feel safe in your relationship?: Yes Exam Const General: cooperative and no acute distress Orientation: alert, awake and oriented x3 HENMT Head: normal to inspection Ears: hearing grossly normal bilaterally and external ears normal General nose exam: external nose normal Mouth: oral mucosae normal Throat: posterior oropharynx normal Eyes General: appearance normal, both eyes and all related structures Neck Neck: normal visual inspection Resp Effort & Inspection: normal respiratory effort and able to speak in complete sentences Auscultation: clear to auscultation bilaterally Cardio Rate: regular rate Rhythm: regular rhythm GI Inspection: obesity Palpation: soft, not firm, no guarding, no hernias, no masses, not rigid and nontender Skin General skin exam: no rashes or lesions noted Neuro General: patient alert, patient awake and patient oriented x3 Motor: muscle tone normal throughout Extrem General: normal to inspection and full ROM Psych Appearance: grossly normal Affect: normal affect Course Vital Signs Vital signs: Vital Signs Temperature 98.4 F 03/17/22 00:37 Pulse 59 L 10/03/22 00:37 Respiratory Rate 22 03/17/22 00:37 Pulse Oximetry 99 03/17/22 00:37 Temperature 98.4 F 03/17/22 00:37 Temperature Source Temporal Artery Scan 03/17/22 00:37 Pulse 59 L 03/17/22 00:37 Respiratory Rate 22 03/17/22 00:37 Respiratory Effort Non-Labored 03/17/22 00:49 Respiratory Depth Normal 03/17/22 00:49 Blood Pressure 183/75 H 03/17/22 00:54 Blood Pressure Position Sitting 03/17/22 00:37 Pulse Oximetry 99 03/17/22 00:37 Oxygen Delivery Method Room Air 03/17/22 00:37 Oxygen Flow Rate 0 03/17/22 00:37 Pain Level 0 03/17/22 00:37
[2022-03-17 01:46] VITALS: BP 174/65; PULSE 57; RESP 24; TEMP 36.9; O2SAT 96
[2022-03-17 01:58] VITALS: BP 178/65; PULSE 56; RESP 18; O2SAT 98
[2022-03-17 02:30] VITALS: BP 159/70; PULSE 69; RESP 16; O2SAT 96
[2022-03-18 18:21] LABS: COVID-19 RT-PCR UVMMC Result Positive (Negative)
--- NOTE | 2022-03-19 13:44 | NUR.NOTE ---
Nursing Note: Patient called stating Nathan the nurse practioner called him and he was returning his call. I told him that I did not know the reason for the call. I checked the patient chart and there was no note stating why. I gave the patient name and phone number where he can now be reached to Sanchez Cintron for his reference.
== END 2022-03-17 04:47 | disposition home or self-care (01) ==
PROVIDERS: Emergency Provider Physician Assistant; PCP Family Medicine
DX: U07.1 COVID-19 (principal); E11.22 Type 2 diabetes mellitus with diabetic chronic kidney disease; I12.9 Hypertensive chronic kidney disease with stage 1 through stage 4 chronic kidney disease, or unspecified chronic kidney disease; N18.9 Chronic kidney disease, unspecified; I48.91 Unspecified atrial fibrillation; Z79.02 Long term (current) use of antithrombotics/antiplatelets; Z79.82 Long term (current) use of aspirin; Z79.4 Long term (current) use of insulin
CPT/HCPCS: 96361; 96374; 99284; Q0222; U0003

== ENCOUNTER 2022-05-22 13:09 | Emergency (ER) | payer MEDICARE, OTHER, SELFPAY ==
[2022-05-22 13:15] VITALS: BP 190/82; PULSE 51; RESP 16; TEMP 37; O2SAT 98
--- NOTE | 2022-05-22 13:37 | ED.GENADUL_ITS ---
Discharge Plan Disposition Patient Disposition: Home Condition: Stable Discharge Details Clinical Impression: Lumbar back pain Primary Care Provider: Evangelista Hopkins ED Provider: Andrea Varela Home Meds and New Rx's Prescriptions: Continued allopurinol 100 MG tablet 150 mg PO DAILY nitroglycerin 0.4 MG tablet, sublingual 0.4 mg Sublingual PRN PRN aspirin [Aspirin Low-Strength] 81 MG tablet,chewable 81 mg PO DAILY Humalog U-100 Insulin 100 UNIT/ML cartridge 0 - 16 unit SQ PRN PRN fluconazole 50 MG tablet 50 mg PO PRN PRN hydralazine 50 mg Tablet 50 mg PO BID losartan 100 mg Tablet 100 mg PO DAILY lorazepam 0.5 mg Tablet 0.5 mg PO DAILY PRN (Reason: Anxiety) mometasone 0.1 % Cream 1 applic TOPICAL DAILY PRN insulin glargine [Basaglar KwikPen U-100 Insulin] 100 unit/mL (3 mL) insulin pen 50 unit SUBCUT QAM Label Comments: INJECT 50 UNITS TWICE A DAY Rx Instructions: 50UNITS QAM AND 45UNITS AT NIGHT atorvastatin [Lipitor] 80 MG tablet 40 mg PO HS Qty: 0 0RF pantoprazole 40 mg tablet,delayed release (DR/EC) 40 mg PO DAILY PRN (Reason: Acid Reflux) Label Comments: TAKE ONE TABLET BY MOUTH EVERY DAY diltiazem HCl 120 mg capsule,extended release 24hr 120 mg PO BID metoprolol succinate [Toprol XL] 50 mg tablet extended release 24 hr 25 mg PO DAILY Farxiga 10 mg Tablet 10 mg PO DAILY clopidogrel [Plavix] 75 mg Tablet 75 mg PO DAILY Discharge Instructions Instructions: Acute Low Back Pain (ED) Additional Instructions: You had an MRI done which did show chronic findings as well as an L5/s1 herniated disc follow up with your primary care provider and pain clinic if you feel more ill, have inability to urinate or weakness return to the emergency department Medical Decision Making 77 yo male who has a history of prostate cancer not undergoing any treatment currently, has had prior back surgeries on his lumbar spine years ago and saw a pain clinic in [facility] in the past, who comes in with a week of worsening lower back pain. HE rush any falls or known trauma. HE states he intermittently gets lower back pain but not this severe. HE denies any fevers, chills, difficulty urinating. He localizes the pain to the mid lower lumbar region. No cva tenderness, no stepoffs, no erythema or warmth. Normal distal sensation and pulses. Suspect djd vs disc herniation. Has no saddle anesthesia to suggest cauda equina and no infectious symptoms to suggest abscess. Pt requesting MRI to evaluate his lumbar spine, will see if there is any availability to have this done. He has no abdominal tenderness so doubt intrabdominal pathology such as appendicitis. MRI shows chronic findings including central spinal canacl and neural foraminal stenosis, and l5/s1 left paracentral disc herniation. He is stable and feels better after he had ativan for mri, declined the im dilaudid. He is stable for d/c, requested referral to the pain clinic in [facility] as he is planning on going there for therapy. Advised to f/u with pcp, return precautions given Differential Diagnosis Differential Diagnosis: disc herniation, muscle spasm Imaging Data Radiologic Study: Attestation: I personally reviewed and interpreted this imaging study as follows: Imaging: MRI Radiologist's impression: IMPRESSION: 1. Multilevel degenerative changes in the lumbar spine resulting in central spinal canal and neural foraminal stenosis.? The findings are most marked at L3- 4 and L4-5 where there is moderately severe central spinal canal stenosis and bilateral neural foraminal stenosis. 2. L5-S1 left paracentral disc herniation with extrusion posterior to the S1 vertebral body resulting in left lateral recess stenosis and compression of the left S1 nerve root. 3. Findings were discussed with the emergency department at 4:15 p.m. on 05/22/2022. Sign Out No HPI General Mode of arrival: ambulatory . Date/Time Provider Initiated Documentation: 05/22/22 13:19 . Limitations to Documentation: no limitations . Information obtained by: patient . History of Present Illness 77 year old M presents to the emergency department with the chief complaint of back pain, described as moderate and severe, with intensity rated at 8. Quality is described as aching, and is localized to the back. Patient reports no radiation. Patient started experiencing this week(s) (1) and it has been constant. No relieving factors improve symptom(s), No exacerbating factors reported . Patient notes denies fever/chills. Patient did receive the following treatments prior to arrival, other (tylenol) Related Data Home Medications Medication Instructions Recorded Confirmed allopurinol 100 mg tablet 150 mg PO DAILY 02/19/15 05/22/22 aspirin 81 mg chewable tablet 81 mg PO DAILY 02/19/15 05/22/22 (Aspirin Low-Strength) fluconazole 50 mg tablet 50 mg PO PRN PRN 02/19/15 05/22/22 insulin lispro 100 unit/mL 0 - 16 unit SQ PRN PRN 02/19/15 05/22/22 subcutaneous cartridge (Humalog U-100 Insulin) nitroglycerin 0.4 mg sublingual 0.4 mg sublingual PRN PRN 02/19/15 05/22/22 tablet hydralazine 50 mg tablet 50 mg PO BID 01/28/20 05/22/22 insulin glargine 100 unit/mL (3 50 unit subcut QAM 01/28/20 05/22/22 mL) subcutaneous pen (Basaglar KwikPen U-100 Insulin) lorazepam 0.5 mg tablet 0.5 mg PO DAILY PRN Anxiety 01/28/20 05/22/22 losartan 100 mg tablet 100 mg PO DAILY 01/28/20 05/22/22 mometasone 0.1 % topical cream 1 applic topical DAILY PRN 01/28/20 05/22/22 atorvastatin 80 mg tablet (Lipitor) 40 mg PO HS #0 tabs 01/30/20 05/22/22 diltiazem HCl 120 mg 120 mg PO BID 01/17/21 05/22/22 capsule,extended release 24 hr pantoprazole 40 mg tablet,delayed 40 mg PO DAILY PRN Acid Reflux 01/17/21 05/22/22 release clopidogrel 75 mg tablet (Plavix) 75 mg PO DAILY 03/17/22 05/22/22 dapagliflozin 10 mg tablet 10 mg PO DAILY 03/17/22 05/22/22 (Farxiga) metoprolol succinate 50 mg 25 mg PO DAILY 03/17/22 05/22/22 tablet,extended release 24 hr (Toprol XL) Previous Rx's Medication Instructions Recorded atorvastatin 80 mg tablet (Lipitor) 40 mg PO HS #0 tabs 01/30/20 Allergies Allergy/AdvReac Type Severity Reaction Status Date / Time guaifenesin [From Robitussin] AdvReac Intermediate Palpitation Unverified 05/22/22 13:19 s. General Stated Complaint: Orthopedic MEREDITH: 4 Review of Systems All systems reviewed & are unremarkable except as noted in HPI and below Constitutional Constitutional: Denies chills, Denies fever(s) and Denies weakness Cardiovascular Cardiovascular: Denies chest pain and Denies dyspnea Respiratory Respiratory: Denies cough and Denies dyspnea Gastrointestinal Gastrointestinal: Denies abdominal pain, Denies nausea and Denies vomiting Genitourinary Genitourinary: Denies dysuria Integumentary/Breasts Skin/Breast: Denies rash Neurologic Neurologic: Denies weakness PFSH All Active Problems (Updated 05/22/22 @ 16:36 by Andrea Varela MD) COVID-19 (Acute) Lumbar back pain (Acute) Anterior epistaxis (Acute) Bursitis, olecranon (Acute) Finger sprain (Acute) Ascending aorta dilatation (Chronic) Osteoarthritis (Chronic) Nephrolithiasis (Chronic) URI (upper respiratory infection) (Acute) Medical History (Updated 05/22/22 @ 16:36 by Andrea Varela MD) Atrial fibrillation Chronic kidney disease Coronary artery disease Diabetes mellitus type 2, insulin dependent Essential hypertension Prostate cancer Surgical History (Updated 08/07/21 @ 06:28 by Romel Hansen MD) History of arthroscopic knee surgery History of back surgery History of coronary angioplasty with insertion of stent (06/20/13) Cardiac cath with drug-eluting stents to LAD and to mid circumflex on February 05, [address] Anuel Norris @ [place], [place]; repeat cath 06/20/2013 with 3 stents to Cx; Dr. Anuel Mcginnis's office is at [address] [place] [address]; phone number is [phone] History of prostatectomy History of rotator cuff surgery Social History Smoking/Tobacco Use Status: Never Smoking risk assessment performed?: Yes Alcohol Intake: never Drug use: Never Substance use type: does not use Do you feel safe at home: Yes Do you feel safe in your relationship?: Yes Exam Const General: no acute distress Orientation: alert HENMT Head: normal to inspection Ears: external ears normal General nose exam: external nose normal Mouth: moist mucous membranes Eyes General: appearance normal, both eyes and all related structures Neck Neck: normal visual inspection Resp Effort & Inspection: normal respiratory effort and able to speak in complete sentences Cardio Rate: regular rate GI Palpation: soft and nontender Back/Spine/Pelvis Back: no CVA tenderness and No erythema Skin General skin exam: no rashes or lesions noted Neuro General: patient alert and patient oriented x3 Extrem General: normal to inspection Psych Mental Status: mental status grossly normal Course Vital Signs Vital signs: Vital Signs Temperature 37.0 C 05/22/22 13:15 Pulse 51 L 05/22/22 13:15 Respiratory Rate 16 05/22/22 13:15 Blood Pressure 190/82 H 05/22/22 13:15 Pulse Oximetry 98 05/22/22 13:15 Temperature 37.0 C 05/22/22 13:15 Temperature Source Temporal Artery Scan 05/22/22 13:15 Pulse 51 L 05/22/22 13:15 Respiratory Rate 16 05/22/22 13:15 Respiratory Effort 05/22/22 13:20 Blood Pressure 190/82 H 05/22/22 13:15 Blood Pressure Position Sitting 05/22/22 13:15 Pulse Oximetry 98 05/22/22 13:15 Oxygen Delivery Method Room Air 05/22/22 13:15 Oxygen Flow Rate 0 05/22/22 13:15 Pain Level 10 05/22/22 13:15
[2022-05-22] MEDS: LORazepam 1 MG TAB PO ×2 (15:07→16:45)
--- NOTE | 2022-05-22 16:00 | DI.MRI_ITS ---
Exam(s) MR LUMBAR SPINE WO EXAM: MR LUMBAR SPINE WO CLINICAL HISTORY: lower back pain, prior disc herniations. TECHNIQUE: Multiplanar multisequence MRI of the Lumbar spine was performed. COMPARISON: No exams were available for comparison FINDINGS: Bones: The last intervertebral disc space is designated the L5/S1 level for the numbering purpose of this examination. The vertebral body heights are well maintained. Alignment is satisfactory. Degene rative endplate signal changes are seen at multiple levels in the lumbar spine. Cord: The conus tip is of normal size and signal intensity. T12-L1: No disc herniations or bulges are present. No central spinal canal or neural foraminal stenos is. L1-2: No disc herniations or bulges are present. No central spinal canal or neural foraminal stenosis . L2-3: There is a mild diffuse disc bulge. No central spinal canal or neural foraminal stenosis. L3-4: There is a diffuse disc bulge. Facet arthropathy and hypertrophy of the ligamentum flavum is p resent. The findings result in moderately severe central spinal canal stenosis. There is moderate b ilateral neural foraminal stenosis. L4-5: There is a diffuse disc bulge with a central disc herniation. There are degenerative changes o f the facets and ligamentum flavum. There is moderately severe central spinal canal stenosis. There is moderate right and marked left neural foraminal stenosis. L5-S1: There is a diffuse disc bulge. There is a left paracentral disc herniation with extrusion pos terior to the S1 vertebral body causing left lateral recess stenosis. There is compression of the le ft S1 nerve root. There is no significant central spinal canal stenosis. There is mild bilateral ne ural foraminal stenosis. Soft tissues: The visualized SI joints and sacrum are well maintained. The paraspinal soft tissues ar e unremarkable. Visualized abdominal organs: There are right renal simple cysts. IMPRESSION: 1. Multilevel degenerative changes in the lumbar spine resulting in central spinal canal and neural f oraminal stenosis. The findings are most marked at L3-4 and L4-5 where there is moderately severe ce ntral spinal canal stenosis and bilateral neural foraminal stenosis. 2. L5-S1 left paracentral disc herniation with extrusion posterior to the S1 vertebral body resulting in left lateral recess stenosis and compression of the left S1 nerve root. 3. Findings were discussed with the emergency department at 4:15 p.m. on 05/22/2022. DATA REPOSITORY:
[2022-05-22] MEDS: LORazepam 1 MG TAB 4 MG PO (16:45)
--- NOTE | 2022-05-22 16:55 | PDOC.ERCMACT ---
- If Service Date Differs Date of service: 05/22/22 Time of Service: 16:55 Care Management Activity Note Guido is seen in the ED for worsening lower back pain. At the request of ED provider, CM coordinates a referral to Alexandr Morrissey MD, MBA, of the [facility] in [place], [place] (tel. #[phone], fax # [phone]) to assist Guido in obtaining a follow up appointment for further evaluation and pain management.
== END 2022-05-22 16:59 | disposition home or self-care (01) ==
PROVIDERS: Emergency Provider Emergency Medicine; PCP Family Medicine
DX: M54.50 Low back pain, unspecified (principal); I48.91 Unspecified atrial fibrillation; E11.22 Type 2 diabetes mellitus with diabetic chronic kidney disease; I12.9 Hypertensive chronic kidney disease with stage 1 through stage 4 chronic kidney disease, or unspecified chronic kidney disease; N18.9 Chronic kidney disease, unspecified; M48.07 Spinal stenosis, lumbosacral region; M51.27 Other intervertebral disc displacement, lumbosacral region; Z85.46 Personal history of malignant neoplasm of prostate; Z79.82 Long term (current) use of aspirin
CPT/HCPCS: 96372; 99284; 72148

== ENCOUNTER 2023-01-29 19:02 | Outpatient (REF) | payer MEDICARE, OTHER, SELFPAY ==
[2023-01-29 19:58] LABS: Anion Gap 10.5 mmol/L (3-11); BUN 42 mg/dL (7-18); CO2 25.5 mmol/L (21.0-32.0); CREATININE 2.2 mg/dL (0.70-1.30); Calcium 9.2 mg/dL (8.5-10.1); Chloride 108 mmol/L (98-107); Estimated GFR 30.28 (mL/min/1.73m2); Glucose 158 mg/dL (74-106); NT-proBNP 207 pg/mL (<300); Potassium 5.2 mmol/L (3.5-5.1); Sodium 144 mmol/L (136-145)
== END 2023-01-29 19:03 | disposition home or self-care (01) ==
LOC: NCHCN 19:02
PROVIDERS: PCP Family Medicine; Visit Provider Family Medicine
DX: R06.09 Other forms of dyspnea (principal); N18.31 Chronic kidney disease, stage 3a; R06.02 Shortness of breath
CPT/HCPCS: 80048; 83880

== ENCOUNTER 2023-08-14 20:05 | Outpatient (REF) | payer MEDICARE, OTHER, SELFPAY ==
[2023-08-14 20:01] LABS: Hemoglobin A1C 7.7 % (<5.7)
== END 2023-08-14 20:06 | disposition home or self-care (01) ==
LOC: NCHCN 20:05
PROVIDERS: PCP Family Medicine; Visit Provider Family Medicine
DX: E11.9 Type 2 diabetes mellitus without complications (principal)
CPT/HCPCS: 83036

== ENCOUNTER 2024-09-27 17:44 | Outpatient (REF) | payer MEDICARE, SELFPAY ==
[2024-09-28 08:08] LABS: COMMENT (LAB VIEW ONLY) 108.99 mg/dL; Microalb ug/mg Crea 207.9 ug/mg Cr
== END 2024-09-27 17:45 | disposition home or self-care (01) ==
LOC: NCHCN 17:44
PROVIDERS: PCP Family Medicine; Visit Provider Family Medicine
DX: E11.9 Type 2 diabetes mellitus without complications (principal)
CPT/HCPCS: 82043; 82570

== ENCOUNTER 2024-11-21 13:28 | Emergency (ER) | payer MEDICARE, SELFPAY ==
[2024-11-21 13:34] VITALS: BP 166/68; PULSE 62; RESP 20; TEMP 36.3; O2SAT 94
[2024-11-21 14:48] VITALS: BP 150/70; PULSE 61; RESP 16; O2SAT 99
--- NOTE | 2024-11-21 18:39 | ED.GENADUL_ITS ---
Discharge Plan Disposition Patient Disposition: Home Condition: Stable Discharge Details Clinical Impression: Abscess, Tick bite Primary Care Provider: Evangelista Hopkins ED Provider: Melissa Reed Home Meds and New Rx's Prescriptions: New doxycycline hyclate 100 mg capsule 100 mg PO BID 14 Days Qty: 28 0RF mupirocin 2 % ointment 1 applic topical BID Qty: 15 0RF No Action allopurinol 100 MG tablet 150 mg PO DAILY nitroglycerin 0.4 MG tablet, sublingual 0.4 mg Sublingual PRN PRN aspirin [Aspirin Low-Strength] 81 MG tablet,chewable 81 mg PO DAILY Humalog U-100 Insulin 100 UNIT/ML cartridge 0 - 16 unit SQ PRN PRN fluconazole 50 MG tablet 50 mg PO PRN PRN hydralazine 50 mg Tablet 50 mg PO BID losartan 100 mg Tablet 100 mg PO DAILY lorazepam 0.5 mg Tablet 0.5 mg PO DAILY PRN (Reason: Anxiety) mometasone 0.1 % Cream 1 applic TOPICAL DAILY PRN insulin glargine [Basaglar KwikPen U-100 Insulin] 100 unit/mL (3 mL) insulin pen 50 unit SUBCUT QAM Patient Comments: INJECT 50 UNITS TWICE A DAY Rx Instructions: 50UNITS QAM AND 45UNITS AT NIGHT atorvastatin [Lipitor] 80 MG tablet 40 mg PO HS Qty: 0 0RF pantoprazole 40 mg tablet,delayed release (DR/EC) 40 mg PO DAILY PRN (Reason: Acid Reflux) Patient Comments: TAKE ONE TABLET BY MOUTH EVERY DAY diltiazem HCl 120 mg capsule,extended release 24hr 120 mg PO BID metoprolol succinate [Toprol XL] 50 mg tablet extended release 24 hr 25 mg PO DAILY Farxiga 10 mg Tablet 10 mg PO DAILY clopidogrel [Plavix] 75 mg Tablet 75 mg PO DAILY Discharge Instructions Additional Instructions: Abscess was drained in the emergency department, it can continue to drain. Please apply warm compress 2-3 times daily, keep clean with soap and water. Try to express any additional drainage out of it. This is likely an infected cyst which may recur. Until the cyst is completely removed this may continue to happen. Because he also had a tick bite that you removed today, we will treat this infection with doxycycline for 2 weeks. This will cover both the skin abscess as well as the tick bite. You have been provided mupirocin ointment to use 2-3 times daily. This can be used on any lesions that you might notice on your skin. You do not have to cover the abscess but because of its location you may want to do to prevent it from being irritated by your suspenders and close. Discharge Data Discharge Date/Time-TO BE ENTERED AT DEPARTURE: 11/21/24 15:21 HPI General Date/Time Provider Initiated Documentation: 11/21/24 13:53 . Limitations to Documentation: no limitations . Information obtained by: patient . HPI Narrative: 79-year-old gentleman with past medical history of CAD, hypertension, diabetes presents for evaluation of wound VAC. Patient has noticed it for the last couple of days. It is red swollen and tender. He has had a wound in this area previously that required incision and drainage. No fevers. also states that while she was looking at this lesion, she noticed today and another spot opened up today. It is unknown how long the tick may have been present. Related Data Home Medications ?Medication ?Instructions ?Recorded ?Confirmed allopurinol 100 mg tablet 150 mg PO DAILY 02/19/15 05/22/22 aspirin 81 mg chewable tablet 81 mg PO DAILY 02/19/15 05/22/22 (Aspirin Low-Strength) fluconazole 50 mg tablet 50 mg PO PRN PRN 02/19/15 05/22/22 insulin lispro 100 unit/mL 0 - 16 unit SQ PRN PRN 02/19/15 05/22/22 subcutaneous cartridge (Humalog U-100 Insulin) nitroglycerin 0.4 mg sublingual 0.4 mg sublingual PRN PRN 02/19/15 05/22/22 tablet hydralazine 50 mg tablet 50 mg PO BID 01/28/20 05/22/22 insulin glargine 100 unit/mL (3 50 unit subcut QAM 01/28/20 05/22/22 mL) subcutaneous pen (Basaglar KwikPen U-100 Insulin) lorazepam 0.5 mg tablet 0.5 mg PO DAILY PRN Anxiety 01/28/20 05/22/22 losartan 100 mg tablet 100 mg PO DAILY 01/28/20 05/22/22 mometasone 0.1 % topical cream 1 applic topical DAILY PRN 01/28/20 05/22/22 atorvastatin 80 mg tablet (Lipitor) 40 mg (1/2 x 80 mg) PO HS #0 tabs 01/30/20 05/22/22 diltiazem HCl 120 mg 120 mg PO BID 01/17/21 05/22/22 capsule,extended release 24 hr pantoprazole 40 mg tablet,delayed 40 mg PO DAILY PRN Acid Reflux 01/17/21 05/22/22 release clopidogrel 75 mg tablet (Plavix) 75 mg PO DAILY 03/17/22 05/22/22 dapagliflozin propanediol 10 mg 10 mg PO DAILY 03/17/22 05/22/22 tablet (Farxiga) metoprolol succinate 50 mg 25 mg PO DAILY 03/17/22 05/22/22 tablet,extended release 24 hr (Toprol XL) doxycycline hyclate 100 mg capsule 100 mg PO BID 14 days #28 caps 11/21/24 mupirocin 2 % topical ointment 1 applic topical BID #15 grams 11/21/24 Previous Rx's ?Medication ?Instructions ?Recorded atorvastatin 80 mg tablet (Lipitor) 40 mg (1/2 x 80 mg) PO HS #0 tabs 01/30/20 doxycycline hyclate 100 mg capsule 100 mg PO BID 14 days #28 caps 11/21/24 mupirocin 2 % topical ointment 1 applic topical BID #15 grams 11/21/24 Allergies Allergy/AdvReac Type Severity Reaction Status Date / Time guaifenesin (From Robitussin) AdvReac Intermediate Palpitation Unverified 05/22/22 13:19 s. General Stated Complaint: RashLesion MEREDITH: 3 Exam Narrative Exam Narrative: Review of Systems: All systems reviewed & are unremarkable except as noted in HPI and below Well-developed, no acute distress afebrile NCAT PERRL, normal conjunctiva RRR Unlabored respiratory effort Mid back there is a 5 x 5 circular area of erythema with central induration and fluctuance points out the area in the right posterior axillary area where she pulled the tick, there is no significant lesion cellulitis or erythema migrans Course Vital Signs Vital signs: Vital Signs Temperature 36.3 C L 11/21/24 13:34 Pulse 62 11/21/24 13:34 Respiratory Rate 20 11/21/24 13:34 Blood Pressure 166/68 H 11/21/24 13:34 Pulse Oximetry 94 11/21/24 13:34 Temperature 36.3 C L 11/21/24 13:34 Pulse 61 11/21/24 14:48 Respiratory Rate 16 11/21/24 14:48 Blood Pressure 150/70 H 11/21/24 14:48 Blood Pressure Mean 96 11/21/24 14:48 Blood Pressure Position Sitting 11/21/24 13:34 Pulse Oximetry 99 11/21/24 14:48 Oxygen Delivery Method Room Air 11/21/24 14:48 Oxygen Flow Rate 0 11/21/24 14:48 Procedure Abscess Drainage Procedure Description Note: Mid back at approximately T10. Area anesthetized with about 10 cc of lidocaine. Incised with 11 blade deloculated with hemostat. Got moderate amount of bloody, purulent drainage. Tolerated the procedure well. Left open. Medical Decision Making Emergent evaluation of abscess. Wound located on back. Mild amount of surrounding cellulitis in addition to the fluctuant area. Wound was opened and drained without complication. I do suspect that this is an inflamed cyst that might likely recur as this is already the second time he has had this drained. He also subsequently was found to have had ticks on him by his just prior to my evaluation. The tick was removed. He has no signs or symptoms of acute Lyme infection, but given that he had a known tick bite in he was present for an unknown amount of time, we will treat with doxycycline. The doxycycline should cover the skin infection as well as the tick bite and Lyme prevention. Return precautions advised. Wound care for the abscess was discussed with the and patient. Return precautions advised. Quality:SDOH Health Related Social Needs: No Data to Display PFSH All Active Problems (Updated 11/21/24 @ 14:51 by Melissa Reed MD) Tick bite (Acute) Abscess (Acute) COVID-19 (Acute) Anterior epistaxis (Acute) Bursitis, olecranon (Acute) Finger sprain (Acute) Ascending aorta dilatation (Chronic) Osteoarthritis (Chronic) Nephrolithiasis (Chronic) URI (upper respiratory infection) (Acute) Medical History (Updated 11/21/24 @ 14:51 by Melissa Reed MD) Chronic kidney disease Prostate cancer Diabetes mellitus type 2, insulin dependent Essential hypertension Coronary artery disease Atrial fibrillation Surgical History (Updated 08/07/21 @ 06:28 by Romel Hansen MD) History of prostatectomy History of back surgery History of rotator cuff surgery History of arthroscopic knee surgery History of coronary angioplasty with insertion of stent (06/20/13) Cardiac cath with drug-eluting stents to LAD and to mid circumflex on February 05, [address] Anuel Norris @ [place], [place]; repeat cath 06/20/2013 with 3 stents to Cx; Dr. Anuel Mcginnis's office is at [address] [place] [address]; phone number is [phone] Social History Smoking/Tobacco Use Status: Never Smoking risk assessment performed?: Yes Alcohol Intake: never Drug use: Never Substance use type: does not use Housing: house Do you feel safe at home: Yes Do you feel safe in your relationship?: Yes
== END 2024-11-21 15:21 | disposition home or self-care (01) ==
LOC: ER 15:24
PROVIDERS: Emergency Provider Emergency Medicine; PCP Family Medicine
DX: S20.461A Insect bite (nonvenomous) of right back wall of thorax, initial encounter (principal); I48.91 Unspecified atrial fibrillation; I25.10 Atherosclerotic heart disease of native coronary artery without angina pectoris; E11.22 Type 2 diabetes mellitus with diabetic chronic kidney disease; I12.9 Hypertensive chronic kidney disease with stage 1 through stage 4 chronic kidney disease, or unspecified chronic kidney disease; N18.9 Chronic kidney disease, unspecified; E11.9 Type 2 diabetes mellitus without complications; Z79.82 Long term (current) use of aspirin; Z79.4 Long term (current) use of insulin; Z79.02 Long term (current) use of antithrombotics/antiplatelets; W57.XXXA Bitten or stung by nonvenomous insect and other nonvenomous arthropods, initial encounter; Y93.89 Activity, other specified
CPT/HCPCS: 10060; 99283

== ENCOUNTER 2025-02-08 12:28 | Emergency (ER) | payer MEDICARE, SELFPAY ==
[2025-02-08 12:37] VITALS: BP 160/63; PULSE 56; RESP 16; TEMP 36.6; O2SAT 96
--- NOTE | 2025-02-08 14:15 | DI.CT_ITS ---
Exam(s) CT HEAD WO EXAM: CT HEAD WO CLINICAL HISTORY: fall on eliquis. TECHNIQUE: Imaging Protocol: Axial computed tomography images with coronal and sagittal reformatted images were created and reviewed COMPARISON: CT CT HEAD WO from 04/12/2020 FINDINGS: There are no skull fractures. There is no fluid in the visualized paranasal sinuses. Post inflammatory retention cyst or small polyp again noted on the anterior wall of the left maxillary sinus. No associated fluid level. There is no evidence of intracranial hemorrhage, mass effect, or shift of midline structures. There are no extra-axial fluid collections. The ventricles are not enlarged or shifted and there is no blood within the ventricular system nor within the basal cisterns. There is heavy calcification noted within both vertebral arteries at the skull base, similar to previous.. Also again some mural calcification noted within the intra cavernous internal carotid arteries. IMPRESSION: No acute intracranial findings on this noninfused CT scan of the brain. Report called by myself to ER on 02/08/2025 at 2:55 p.m. RADIATION DOSE DELIVERED: 874.46mGy.cm Total DLP DATA REPOSITORY: All CT scans at this facility are submitted to the National Radiology Data Registry (NRDR) Dose Index Registry (DIR) with the [employer] ([employer]). RADIATION OPTIMIZATION: All CT scans at this facility use at least one of these dose optimization techniques: automated exposure control; mA and/or kV adjustment per patient size (includes targeted exams where dose is matched to clinical indication); or iterative reconstruction.
[2025-02-08] MEDS: Acetaminophen 500 MG TAB 1000 MG PO (14:42)
--- NOTE | 2025-02-08 15:41 | DI.RAD_ITS ---
Exam(s) XR ANKLE RT COMPLETE EXAM: XR ANKLE RT COMPLETE CLINICAL HISTORY: fall, pain medially. TECHNIQUE: 2D digital imaging was performed. COMPARISON: No exams were available for comparison FINDINGS: 3 views There is soft tissue swelling over both sides the ankle. No evidence of fractures of the medial lateral malleolus. On the lateral view there is a very subtle suggestion of possible nondisplaced posterior malleolus fracture. Talar dome unremarkable. There is a moderate size inferior calcaneal spur. There is calcification at the insertional aspect of the Achilles tendon on the posterior calcaneus. IMPRESSION: Possible very subtle nondisplaced fracture the posterior malleolus. Recommend CT scan of the ankle. DATA REPOSITORY: RADIATION DOSE DELIVERED:
--- NOTE | 2025-02-08 15:41 | DI.RAD_ITS ---
Exam(s) XR THORACIC SPINE COMPLETE EXAM: XR THORACIC SPINE COMPLETE CLINICAL HISTORY: back pain post fall. TECHNIQUE: 2D digital imaging was performed. COMPARISON: No exams were available for comparison FINDINGS: 3 views No evidence of compression fracture in the thoracic vertebral bodies. No abnormal widening of the paraspinal lines. Bone density normal. No osseous lesions. No significant scoliosis. IMPRESSION: No acute osseous findings in the thoracic spinal column. DATA REPOSITORY: RADIATION DOSE DELIVERED:
--- NOTE | 2025-02-08 15:42 | DI.RAD_ITS ---
Exam(s) XR KNEE RT 3V AP,LAT,JHONNY EXAM: XR KNEE RT 3V AP,LAT,JHONNY CLINICAL HISTORY: fall, pain to knee. TECHNIQUE: 2D digital imaging was performed. COMPARISON: No exams were available for comparison FINDINGS: 3 views No evidence of acute fracture nor prominent joint effusion. There is degenerative change in the medial lateral compartments with moderate narrowing of both compartments and marginal osteophytes of the medial compartment and chondrocalcinosis in the lateral compartment. Bone density normal. No osseous lesions. Vascular calcification of popliteal artery and ru noff vessels of the calf is noted. IMPRESSION: Degenerative changes. No fractures. In the knee evident DATA REPOSITORY: RADIATION DOSE DELIVERED:
--- NOTE | 2025-02-08 15:42 | DI.RAD_ITS ---
Exam(s) XR FOOT RT COMPLETE EXAM: XR FOOT RT COMPLETE CLINICAL HISTORY: foot pain post fall. TECHNIQUE: 2D digital imaging was performed. COMPARISON: No exams were available for comparison FINDINGS: 3 views On the lateral view there is a subtle suggestion of a possible nondisplaced posterior malleolus fracture. This can be further studied with CT scan There otherwise no obvious fractures in the foot and no diastasis of the Lisfranc joint. The more medial of the 2 sesamoid bones subjacent to the great toe metatarsal head is noted to be bipartite. There is a moderate size inferior calcaneal spur. No pes planus. IMPRESSION: Possible subtle posterior malleolus fracture. Follow-up CT scan recommended. DATA REPOSITORY: RADIATION DOSE DELIVERED:
--- NOTE | 2025-02-08 15:50 | ED.GENADUL_ITS ---
Discharge Plan Disposition Patient Disposition: Home Discharge Details Clinical Impression: Closed fracture of posterior malleolus Primary Care Provider: Arnaud Storey ED Provider: Shellie Garland Home Meds and New Rx's Prescriptions: No Action allopurinol 100 MG tablet 150 mg PO DAILY nitroglycerin 0.4 MG tablet, sublingual 0.4 mg Sublingual PRN PRN aspirin [Aspirin Low-Strength] 81 MG tablet,chewable 81 mg PO DAILY Humalog U-100 Insulin 100 UNIT/ML cartridge 0 - 16 unit SQ PRN PRN fluconazole 50 MG tablet 50 mg PO PRN PRN hydralazine 50 mg Tablet 50 mg PO BID losartan 100 mg Tablet 100 mg PO DAILY lorazepam 0.5 mg Tablet 0.5 mg PO DAILY PRN (Reason: Anxiety) mometasone 0.1 % Cream 1 applic TOPICAL DAILY PRN insulin glargine [Basaglar KwikPen U-100 Insulin] 100 unit/mL (3 mL) insulin pen 50 unit SUBCUT QAM Patient Comments: INJECT 50 UNITS TWICE A DAY Rx Instructions: 50UNITS QAM AND 45UNITS AT NIGHT atorvastatin [Lipitor] 80 MG tablet 40 mg PO HS Qty: 0 0RF pantoprazole 40 mg tablet,delayed release (DR/EC) 40 mg PO DAILY PRN (Reason: Acid Reflux) Patient Comments: TAKE ONE TABLET BY MOUTH EVERY DAY diltiazem HCl 120 mg capsule,extended release 24hr 120 mg PO BID metoprolol succinate [Toprol XL] 50 mg tablet extended release 24 hr 25 mg PO DAILY Farxiga 10 mg Tablet 10 mg PO DAILY clopidogrel [Plavix] 75 mg Tablet 75 mg PO DAILY mupirocin 2 % ointment 1 applic topical BID Qty: 15 0RF Discharge Instructions Additional Instructions: Please call [facility] orthopedics to schedule follow-up appointment in 1 week. I recommend that you use the boot to help keep the fracture stable when you are up and walking. Take off the boot when you are resting to let it air out. Elevate your foot above heart level to help with swelling and discomfort. You may apply ice for 15 to 20 minutes at a time. You may use Tylenol 650 mg every 6 hours as needed for pain control. Return to emergency care if you notice any signs of neurovascular compromise such as blueness/coldness to your foot, new severe pain, or if you are very worried and need to be rechecked again immediately. Referrals: [facility] [Provider Group] Discharge Data Discharge Date/Time-TO BE ENTERED AT DEPARTURE: 02/08/25 18:02 HPI General Date/Time Provider Initiated Documentation: 02/08/25 12:42 . HPI Narrative: 79-year-old male presents after trip and fall going down the stairs last night. He fell down 3 steps he jammed his heel ankle and knee on the right side. Denie s hitting his head but did hit his back denies any blood in his urine and denies any abdominal pain or any additional injuries. He presents mostly secondary to pain in his legs. Denies any loss of consciousness nausea or vomiting. Related Data Home Medications ?Medication ?Instructions ?Recorded ?Confirmed allopurinol 100 mg tablet 150 mg PO DAILY 02/19/1502/03 aspirin 81 mg chewable tablet 81 mg PO DAILY 02/19/15 05/22/22 (Aspirin Low-Strength) fluconazole 50 mg tablet 50 mg PO PRN PRN 02/19/15 insulin lispro 100 unit/mL 0 - 16 unit SQ PRN PRN 12/2705/22/22 subcutaneous cartridge (Humalog U-100 Insulin) nitroglycerin 0.4 mg sublingual 0.4 mg sublingual PRN PRN 02/19/15 05/22/22 tablet hydralazine 50 mg tablet 50 mg PO BID 01/28/20 insulin glargine 100 unit/mL (3 50 unit subcut QAM 05/22/22 mL) subcutaneous pen (Basaglar KwikPen U-100 Insulin) lorazepam 0.5 mg tablet 0.5 mg PO DAILY PRN Anxiety 01/28/20 05/22/22 losartan 100 mg tablet 100 mg PO DAILY 01/28/2002/03 mometasone 0.1 % topical cream 1 applic topical DAILY PRN 01/28/20 05/22/22 atorvastatin 80 mg tablet (Lipitor) 40 mg (1/2 x 80 mg ) PO HS #0 tabs 01/30/20 05/22/22 diltiazem HCl 120 mg 120 mg PO BID 01/17/2105/22 capsule,extended release 24 hr pantoprazole 40 mg tablet,delayed 40 mg PO DAILY PRN A ara Reflux 01/17/21 05/22/22 release clopidogrel 75 mg tablet (Plavix) 75 mg PO DAILY 03/1705/22/22 dapagliflozin propanediol 10 mg 10 mg PO DAILY 2 05/22/22 tablet (Farxiga) metoprolol succinate 50 mg 25 mg PO DAILY 03/17/2202/03 tablet,extended release 24 hr (Toprol XL) mupirocin 2 % topical ointment 1 applic topical BID #1 5 grams 11/21/24 Previous Rx's ?Medication ?Instructions ?Recorded atorvastatin 80 mg tablet (Lipitor) 40 mg (1/2 x 80 mg ) PO HS #0 tabs 01/30/20 mupirocin 2 % topical ointment 1 applic topical BID #1 5 grams 11/21/24 Allergies Allergy/AdvReac Type Severity Reaction Status Date / Time cefuroxime Allergy Severe Swelling/Ed Verified 02/08/25 12:43 glendy guaifenesin (From Robitussin) AdvReac Intermediate Palpitation Unverified 02/08/25 12:43 s. General Stated Complaint: Orthopedic MEREDITH: 3 Exam Narrative Exam Narrative: And oriented 79-year-old male in no acute distress without any sign of head trauma pupils equal round reactive to light and accommodation no hemotympanum no midline neck tenderness some very mild tenderness of thoracic spine without any visible sign of trauma to CVA region, lungs are clear to auscultation cardiac rate rhythm regular no abdominal tenderness or visible sign of trauma answering questions appropriately, predominantly tender to right knee which is mildly swollen and right ankle and foot, neurovascularly intact no open fracture Course Vital Signs Vital signs: Vital Signs Temperature 36.6 C 02/08/25 12:37 Pulse 56 L 02/08/25 12:37 Respiratory Rate 16 02/08/25 12:37 Blood Pressure 160/63 H 02/08/25 12:37 Pulse Oximetry 96 02/08/25 12:37 Temperature 36.6 C 02/08/25 12:37 Temperature Source Oral 02/08/25 12:37 Pulse 56 L 02/08/25 12:37 Respiratory Rate 16 02/08/25 12:37 Blood Pressure 160/63 H 02/08/25 12:37 Pulse Oximetry 96 02/08/25 12:37 Oxygen Delivery Method Room Air 02/08/25 12:37 Oxygen Flow Rate 0 02/08/25 12:37 Pain Level 8 02/08/25 12:37 Medical Decision Making Results: CT head x-ray knee x-ray ankle do not show evidence of acute abnormality per radiology, question of posterior malleolus fracture on foot x- ray per radiologist Assessment and plan. Patient presenting post fall, secondary to Eliquis I did order CT head which is reassuring, thoracic spine per radiology interpretation does not show evidence of acute abnormality question of posterior malleolus fr acture on foot and ankle study, will order CT extremity for further evaluation. No diagnostic labs were ordered this patient had mechanical fall and I have low suspicion for intra-abdominal or thoracic pathology based on my assessment. Patient will likely need a boot and follow-up with orthopedics in the outpatient setting he prefers not to take opiates or Tylenol will likely be reasonable. I will transition care pending CT extremity. PFSH All Active Problems (Updated 02/08/25 @ 17:44 by Shellie Zhang) Closed fracture of posterior malleolus (Acute) COVID-19 (Acute) Anterior epistaxis (Acute) Bursitis, olecranon (Acute) Finger sprain (Acute) Ascending aorta dilatation (Chronic) Osteoarthritis (Chronic) Nephrolithiasis (Chronic) URI (upper respiratory infection) (Acute) Medical History (Updated 02/08/25 @ 17:44 by Shellie Zhang) Chronic kidney disease Prostate cancer Diabetes mellitus type 2, insulin dependent Essential hypertension Coronary artery disease Atrial fibrillation Surgical History (Updated 08/07/21 @ 06:28 by Romel Hansen MD) History of prostatectomy History of back surgery History of rotator cuff surgery History of arthroscopic knee surgery History of coronary angioplasty with insertion of stent (06/20/13) Cardiac cath with drug-eluting stents to LAD and to mid circumflex on February 05, [address] Anuel Norris @ [place], [place]; repeat cath 06/20/2013 with 3 stents to Cx; Dr. Anuel Mcginnis's office is at [address] [place] [address]; phone number is [phone] Social History Smoking/Tobacco Use Status: Never Smoking risk assessment performed?: Yes Alcohol Intake: never Drug use: Never Substance use type: does not use Housing: house Do you feel safe at home: Yes Do you feel safe in your relationship?: Yes
--- NOTE | 2025-02-08 16:00 | DI.CT_ITS ---
Exam(s) CT LOWER EXTREMITY RT WO EXAM: CT LOWER EXTREMITY RT WO CLINICAL HISTORY: question of posterior malleolus fx. TECHNIQUE: Imaging Protocol: Axial computed tomography images with coronal and sagittal reformatted images were created and reviewed. CONTRAST MATERIAL: Intravenous: Omnipaque 350 Contrast volume:structured data in ml Contrast route:IV - Oral: yes / no COMPARISON: Ankle plain films earlier today were reviewed. FINDINGS: There is a nondisplaced fracture of the posterior malleolus which corresponds to the finding on the plain films. Fracture line violates the posterior articular surface of the tibiotalar joint but there is no step at this level. There are no other fractures identified. Prominent inferior calcaneal spur is noted as well as a few small calcifications in the adjacent plantar fascia. There is also calcification at the insertional aspect of the Achilles tendon on the posterior aspect of the calcaneus. IMPRESSION: Nondisplaced fracture of the posterior malleolus as described above. Report called by myself to ER 02/08/2025 5:02 p.m. RADIATION DOSE DELIVERED: 137.69mGy.cm Total DLP DATA REPOSITORY: All CT scans at this facility are submitted to the National Radiology Data Registry (NRDR) Dose Index Registry (DIR) with the [employer] ([employer]). RADIATION OPTIMIZATION: All CT scans at this facility use at least one of these dose optimization techniques: automated exposure control; mA and/or kV adjustment per patient size (includes targeted exams where dose is matched to clinical indication); or iterative reconstruction.
--- NOTE | 2025-02-08 17:34 | ED.PROG_ITS ---
Date of service: 02/08/25 Time of Service: 16:00 Medical Decision Making Report received from PRACHI Ramirez, daytime ANTONIO. Please see her note for full HPI, ROS, physical exam, and initial imaging. Daniel is a 79-year-old male who presented to the emergency department today for evaluation of right heel/ank le and knee pain after falling yesterday. Physical exam remarkable for swelling and tenderness just superior to medial malleolus and posterior aspect of ankle. Ankle x-ray significant for concern for fracture posterior malleolus, this was confirmed on CT lower extremity. Head CT performed as patient is anticoagulated, no acute findings. Foot and knee x-rays unremarkable. Discussed case with Dr. Kang, he is agreeable with plan to use walking boot. Patient can weight-bear as tolerated, may remove the boot if unable to tolerate the boot. Follow-up in 1 week. Referral made to orthopedics. Imaging Data Radiologic Study: Radiologist's impression: Exam(s) CT HEAD WO EXAM: CT HEAD WO CLINICAL HISTORY: fall on eliquis. TECHNIQUE: Imaging Protocol: Axial computed tomography images with coronal and sagittal reformatted images were created and reviewed COMPARISON: CT CT HEAD WO from 04/12/2020 FINDINGS: There are no skull fractures. There is no fluid in the visualized paranasal sinuses. Post inflammatory retention cyst or small polyp again noted on the anterior wall of the left maxillary sinus. No associated fluid level. There is no evidence of intracranial hemorrhage, mass effect, or shift of midline structures. There are no extra-axial fluid collections. The ventricles are not enlarged or shifted and there is no blood within the ventricular system nor within the basal cisterns. There is heavy calcification noted within both vertebral arteries at the skull base, similar to previous.. Also again some mural calcification noted within the intra cavernous internal carotid arteries. IMPRESSION: No acute intracranial findings on this noninfused CT scan of the brain. Radiologic Study #2: Radiologist's impression: Exam(s) XR ANKLE RT COMPLETE EXAM: XR ANKLE RT COMPLETE CLINICAL HISTORY: fall, pain medially. TECHNIQUE: 2D digital imaging was performed. COMPARISON: No exams were available for comparison FINDINGS: 3 views There is soft tissue swelling over both sides the ankle. No evidence of fractures of the medial lateral malleolus. On the lateral view there is a very subtle suggestion of possible nondisplaced posterior malleolus fracture. Talar dome unremarkable. There is a moderate size inferior calcaneal spur. There is calcification at the insertional aspect of the Achilles tendon on the posterior calcaneus. IMPRESSION: Possible very subtle nondisplaced fracture the posterior malleolus. Recommend CT scan of the ankle. Radiologic Study #3: Radiologist's impression: Exam(s) XR FOOT RT COMPLETE EXAM: XR FOOT RT COMPLETE CLINICAL HISTORY: foot pain post fall. TECHNIQUE: 2D digital imaging was performed. COMPARISON: No exams were available for comparison FINDINGS: 3 views On the lateral view there is a subtle suggestion of a possible nondisplaced posterior malleolus fracture. This can be further studied with CT scan There otherwise no obvious fractures in the foot and no diastasis of the Lisfranc joint. The more medial of the 2 sesamoid bones subjacent to the great toe metatarsal head is noted to be bipartite. There is a moderate size inferior calcaneal spur. No pes planus. IMPRESSION: Possible subtle posterior malleolus fracture. Follow-up CT scan recommended. Radiologic Study #4: Radiologist's impression: Exam(s) CT LOWER EXTREMITY RT WO EXAM: CT LOWER EXTREMITY RT WO CLINICAL HISTORY: question of posterior malleolus fx. TECHNIQUE: Imaging Protocol: Axial computed tomography images with coronal and sagittal reformatted images were created and reviewed. CONTRAST MATERIAL: Intravenous: Omnipaque 350 Contrast volume:structured data in ml Contrast route:IV - Oral: yes / no COMPARISON: Ankle plain films earlier today were reviewed. FINDINGS: There is a nondisplaced fracture of the posterior malleolus which corresponds to the finding on the plain films. Fracture line violates the posterior articular surface of the tibiotalar joint but there is no step at this level. There are no other fractures identified. Prominent inferior calcaneal spur is noted as well as a few small calcifications in the adjacent plantar fascia. There is also calcification at the insertional aspect of the Achilles tendon on the posterior aspect of the calcaneus. IMPRESSION: Nondisplaced fracture of the posterior malleolus as described above. Discharge Plan Disposition Patient Disposition: Home Discharge Details Clinical Impression: Closed fracture of posterior malleolus Primary Care Provider: Arnaud Storey ED Provider: Shellie Garland Home Meds and New Rx's Prescriptions: No Action allopurinol 100 MG tablet 150 mg PO DAILY nitroglycerin 0.4 MG tablet, sublingual 0.4 mg Sublingual PRN PRN aspirin [Aspirin Low-Strength] 81 MG tablet,chewable 81 mg PO DAILY Humalog U-100 Insulin 100 UNIT/ML cartridge 0 - 16 unit SQ PRN PRN fluconazole 50 MG tablet 50 mg PO PRN PRN hydralazine 50 mg Tablet 50 mg PO BID losartan 100 mg Tablet 100 mg PO DAILY lorazepam 0.5 mg Tablet 0.5 mg PO DAILY PRN (Reason: Anxiety) mometasone 0.1 % Cream 1 applic TOPICAL DAILY PRN insulin glargine [Basaglar KwikPen U-100 Insulin] 100 unit/mL (3 mL) insulin pen 50 unit SUBCUT QAM Patient Comments: INJECT 50 UNITS TWICE A DAY Rx Instructions: 50UNITS QAM AND 45UNITS AT NIGHT atorvastatin [Lipitor] 80 MG tablet 40 mg PO HS Qty: 0 0RF pantoprazole 40 mg tablet,delayed release (DR/EC) 40 mg PO DAILY PRN (Reason: Acid Reflux) Patient Comments: TAKE ONE TABLET BY MOUTH EVERY DAY diltiazem HCl 120 mg capsule,extended release 24hr 120 mg PO BID metoprolol succinate [Toprol XL] 50 mg tablet extended release 24 hr 25 mg PO DAILY Farxiga 10 mg Tablet 10 mg PO DAILY clopidogrel [Plavix] 75 mg Tablet 75 mg PO DAILY mupirocin 2 % ointment 1 applic topical BID Qty: 15 0RF Discharge Instructions Additional Instructions: Please call [facility] orthopedics to schedule follow-up appointment in 1 week. I recommend that you use the boot to help keep the fracture stable when you are up and walking. Take off the boot when you are resting to let it air out. Elevate your foot above heart level to help with swelling and discomfort. You may apply ice for 15 to 20 minutes at a time. You may use Tylenol 650 mg every 6 hours as needed for pain control. Return to emergency care if you notice any signs of neurovascular compromise such as blueness/coldness to your foot, new severe pain, or if you are very worried and need to be rechecked again immediately. Referrals: [facility] [Provider Group]
--- NOTE | 2025-02-28 10:26 | NUR.NOTE ---
Accessed Pt chart to print provider summary for [facility].
== END 2025-02-08 18:02 | disposition home or self-care (01) ==
PROVIDERS: Emergency Provider Nurse Practitioner Family; PCP Family Medicine
DX: S82.391A Other fracture of lower end of right tibia, initial encounter for closed fracture (principal); Z79.01 Long term (current) use of anticoagulants; W10.8XXA Fall (on) (from) other stairs and steps, initial encounter; M25.561 Pain in right knee
CPT/HCPCS: 99284; 99285; 29515; 00123; 73562; 70450; 72072; 73610; 73630; 73700

== ENCOUNTER 2025-03-12 19:08 | Emergency (ER) | payer MEDICARE, SELFPAY ==
[2025-03-12] VITALS (22 sets, daily range): BP systolic 136–182; BP diastolic 56–108; PULSE 46–59; RESP 14–26; TEMP 36.7; O2SAT 96–99
--- NOTE | 2025-03-12 19:00 | RT.EKG_ITS ---
APPROVED REPORT Exam: Resting ECG Reason for Exam: chest pain Patient Location: E HR:53 bpm ECG Measurements Heart Rate 53 AXIS WI 227 P 49 QRSd 83 QRS 34 QT 432 T 79 QTc 407 Conclusion Sinus bradycardia...rate< 60 Prolonged WI interval...WI >220, V-rate 50- 90 Physician: No STEMI
--- NOTE | 2025-03-12 19:30 | DI.RAD_ITS ---
Exam(s) XR PORTABLE CHEST AP EXAM: XR PORTABLE CHEST AP CLINICAL HISTORY: left shoulder and chest pain. TECHNIQUE: 2D digital imaging was performed. COMPARISON: CR,XR XR CHEST 2V PA LATERAL from 01/28/2020 FINDINGS: Single AP portable view. Heart size is upper normal. The mediastinum is not widened. Lungs are clear. No infiltrates nor obvious pleural effusions. IMPRESSION: No acute pulmonary findings on this single AP portable view of the chest. DATA REPOSITORY: RADIATION DOSE DELIVERED:
[2025-03-12 20:00] LABS: Abs Immature Grans 0.02 10^3/uL (0.0-0.06); HCT 35.1 % (40.0-50.0); HGB 11.7 g/dL (13.5-17.5); Immature Grans % 0.3 %; MCH 33.1 pg (27.0-33.0); MCHC 33.3 % (32.0-36.0); MCV 99 fL (80-95); MPV 9.3 fL (8.0-11.0); Platelet Count 204 10^3/uL (130-400); RBC 3.53 10^6/uL (4.36-5.78); RDW 14.8 % (11.8-14.1); RDW-SD 54.0 fL; WBC 7.25 10^3/uL (4.4-10.8)
[2025-03-12] MEDS: Lidocaine 5% Patch 1 PATCH TP (20:04)
[2025-03-12] MEDS: Diclofenac 1% Gel 100 GM TUBE TP (20:04)
[2025-03-12 20:13] LABS: INR 1.1 (0.9-1.1); PTT Activated 24.6 sec (20.6-30.2); Prothrombin Time 10.8 sec (9.1-11.1)
[2025-03-12 20:23] LABS: ALT 29 U/L (16-63); AST 19 U/L (15-37); Albumin 3.6 g/dL (3.4-5.0); Alkaline Phosphatase 104 U/L (46-116); Anion Gap 9.5 mmol/L (3-11); BUN 36 mg/dL (7-18); Bilirubin, Total 0.4 mg/dL (0.2-1.0); CO2 24.5 mmol/L (21.0-32.0); Calcium 9.2 mg/dL (8.5-10.1); Chloride 106 mmol/L (98-107); Estimated GFR 31.63 (mL/min/1.73m2); Glucose 165 mg/dL (74-106); NT-proBNP 191 pg/mL (<300); Potassium 4.2 mmol/L (3.5-5.1); Sodium 140 mmol/L (136-145); Total Protein 6.7 g/dL (6.4-8.2); Troponin I 17 ng/L (<or=76)
[2025-03-12 21:14] LABS: Troponin I 17 ng/L (<or=76)
--- NOTE | 2025-03-12 21:23 | DI.VRAD_ITS ---
PROCEDURE INFORMATION: Exam: XR Chest Exam date and time: 03/12/2025 8:00 PM Age: 79 years old Clinical indication: Left-sided; L shoulder and chest pain TECHNIQUE: Imaging protocol: Radiologic exam of the chest. Views: 1 view. Other technique: Portable exam. COMPARISON: CR XR CHEST 2V PA LATERAL 01/28/2020 12:02 PM FINDINGS: Lungs: Unremarkable. No consolidation. Pleural spaces: Unremarkable. No pleural effusion. No pneumothorax. Heart/Mediastinum: No change cardiomegaly. Bones/joints: Unremarkable. IMPRESSION: No acute abnormality evident in the chest. Dictated and Authenticated by: Pamela Meade MD. Orderin Giovanny Lockhart MD
--- NOTE | 2025-03-12 21:50 | W.ED.GENAD ---
Discharge Plan Disposition Patient Disposition: Home Condition: Good Discharge Details Clinical Impression: Left shoulder pain, Chest discomfort Primary Care Provider: Arnaud Storey ED Provider: Richy Baltazar Home Meds and New Rx's Prescriptions: No Action allopurinol 100 MG tablet 150 mg PO DAILY nitroglycerin 0.4 MG tablet, sublingual 0.4 mg Sublingual PRN PRN Humalog U-100 Insulin 100 UNIT/ML cartridge 0 - 16 unit SQ PRN PRN fluconazole 50 MG tablet 50 mg PO PRN PRN hydralazine 50 mg Tablet 50 mg PO BID losartan 100 mg Tablet 100 mg PO DAILY lorazepam 0.5 mg Tablet 0.5 mg PO DAILY PRN (Reason: Anxiety) mometasone 0.1 % Cream 1 applic TOPICAL DAILY PRN insulin glargine [Basaglar KwikPen U-100 Insulin] 100 unit/mL (3 mL) insulin pen 50 unit SUBCUT QAM Patient Comments: INJECT 50 UNITS TWICE A DAY Rx Instructions: 50UNITS QAM AND 45UNITS AT NIGHT atorvastatin [Lipitor] 80 MG tablet 40 mg PO HS Qty: 0 0RF pantoprazole 40 mg tablet,delayed release (DR/EC) 40 mg PO DAILY PRN (Reason: Acid Reflux) Patient Comments: TAKE ONE TABLET BY MOUTH EVERY DAY diltiazem HCl 120 mg capsule,extended release 24hr 120 mg PO BID metoprolol succinate [Toprol XL] 50 mg tablet extended release 24 hr 25 mg PO DAILY dapagliflozin propanediol [Farxiga] 10 mg Tablet 10 mg PO DAILY clopidogrel [Plavix] 75 mg Tablet 75 mg PO DAILY Eliquis 5 mg tablet 5 mg PO BID Kerendia 10 mg tablet 10 mg PO DAILY mupirocin 2 % ointment 1 applic topical BID PRN Discharge Instructions Instructions: Joint Pain, Chest pain Additional Instructions: At this time your workup has returned reassuring. There is no evidence to suggest heart attack or other significant abnormality. There certainly is evidence of chronic arthritis in your left shoulder which may certainly be a component of your symptomatology. Please apply the Voltaren gel 2-3 times per day to your shoulder. This may help in relieving some of your symptoms and pain. Also of note your hemoglobin/blood levels are slightly lower than normal. Please follow-up closely with your primary care provider for monitoring and recheck. If you notice any worsening of your symptoms, or any new symptoms such as vomiting, diarrhea, fever, chills, shortness of breath, chest pain, numbness, weakness, or fainting , please return immediately to the emergency department for reevaluation. Please follow up with your primary care provider as soon as possible for reassessment and reevaluation. As always, it was a pleasure participating in your medical care today. Referrals: Arnaud Storey MD [Primary Care Provider, Medicine] [facility] General Date/Time Provider Initiated Documentation: 03/12/25 19:14. HPI Narrative: This is a 79-year-old male with a past medical history of type 2 diabetes mellitus, previous prostate cancer, chronic kidney disease, previous DVTs, previous atrial fibrillation, currently on Eliquis and Plavix, previous coronary artery disease with stenting in 2013, as well as chronic left sided shoulder discomfort for which she has had prior orthopedic surgeries and steroid injections, who presents today for evaluation of left shoulder discomfort with some radiation into the chest. Patient states that starting yesterday he developed some left shoulder achiness, initially it was achiness and pain in the left shoulder, but then with time began radiating into the left chest. The pain kept him up all last night. Pain was made worse when he would move or rotate his shoulder. He denies any associated shortness of breath, syncope, lightheadedness, or tearing or ripping sensation. No exertional discomfort or exertional chest pain. He states that this feels different than his previous myocardial infarction pain. He did take it did improve his symptoms. No other complaints at this time. Related Data Home Medications ?Medication ?Instructions ?Recorded ?Confirmed allopurinol 100 mg tablet 150 mg PO DAILY 02/19/15 03/12/25 fluconazole 50 mg tablet 50 mg PO PRN PRN 02/19/15 03/12/25 insulin lispro 100 unit/mL 0 - 16 unit SQ PRN PRN 02/19/15 03/12/25 subcutaneous cartridge (Humalog U-100 Insulin) nitroglycerin 0.4 mg sublingual 0.4 mg sublingual PRN PRN 02/19/15 03/12/25 tablet hydralazine 50 mg tablet 50 mg PO BID 01/28/20 03/12/25 insulin glargine 100 unit/mL (3 50 unit subcut QAM 01/28/20 03/12/25 mL) subcutaneous pen (Lisaaglar KaryPen U-100 Insulin) lorazepam 0.5 mg tablet 0.5 mg PO DAILY PRN Anxiety 01/28/20 03/12/25 losartan 100 mg tablet 100 mg PO DAILY 01/28/20 03/12/25 mometasone 0.1 % topical cream 1 applic topical DAILY PRN 01/28/20 03/12/25 atorvastatin 80 mg tablet (Lipitor) 40 mg (1/2 x 80 mg) PO HS #0 tabs 01/30/20 03/12/25 diltiazem HCl 120 mg 120 mg PO BID 01/17/21 03/12/25 capsule,extended release 24 hr pantoprazole 40 mg tablet,delayed 40 mg PO DAILY PRN Acid Reflux 01/17/21 03/12/25 release clopidogrel 75 mg tablet (Plavix) 75 mg PO DAILY 03/17/22 03/12/25 dapagliflozin propanediol 10 mg 10 mg PO DAILY 03/17/22 03/12/25 tablet (Farxiga) metoprolol succinate 50 mg 25 mg PO DAILY 03/17/22 03/12/25 tablet,extended release 24 hr (Toprol XL) apixaban 5 mg tablet (Eliquis) 5 mg PO BID 03/12/25 03/12/25 finerenone 10 mg tablet (Kerendia) 10 mg PO DAILY 03/12/25 03/12/25 mupirocin 2 % topical ointment 1 applic topical BID PRN 03/12/25 03/12/25 Previous Rx's ?Medication ?Instructions ?Recorded atorvastatin 80 mg tablet (Lipitor) 40 mg (1/2 x 80 mg) PO HS #0 tabs 01/30/20 Allergies Allergy/AdvReac Type Severity Reaction Status Date / Time cefuroxime Allergy Severe Swelling/Ed Verified 03/12/25 19:12 glendy guaifenesin (From Robitussin) AdvReac Intermediate Palpitation Verified 03/12/25 19:12 s. General Stated Complaint: Chest Pain MEREDITH: 3 Exam Narrative Exam Narrative: 1.Const: Well-nourished, Well-developed, appearing stated age 2.Eyes: PERRL, no conjunctival injection, and symmetrical lids. 3.ENT: Atraumatic external nose and ears. Moist MM. Neck: Symmetric, trachea midline, No thyromegaly. 4.CVS: +S1/S2, Peripheral pulses 2+ and equal in all extremities. Brisk capillary refill in all extremities. 5.RESP: Unlabored respiratory effort. Clear to auscultation bilaterally. No wheezes rales or rhonchi 6.GI: Soft, Nontender/Nondistended, No hepatosplenomegaly. No guarding or rebound. 7.MSK: Normocephalic/Atraumatic, Extremities w/o deformity or ttp No cyanosis or clubbing, Normal movement of all extremities Patient has no focal deformity or tenderness on the shoulder itself, however patient does have pain with external rotation. As well as the empty can test. No pain with anterior posterior movement. No significant pain with adduction, mild pain with abduction. 8.Skin: Warm, Dry. No rashes or lesions. 9.Neuro: galley worker II-XII grossly intact. Sensation grossly intact, no focal neurologic deficits. 10.Psych: (AAO) x3. Appropriate mood and affect Course Vital Signs Vital signs: Vital Signs Temperature 36.7 C 03/12/25 19:20 Pulse 53 L 03/12/25 19:20 Respiratory Rate 20 03/12/25 19:20 Blood Pressure 182/74 H 03/12/25 19:20 Pulse Oximetry 96 03/12/25 19:20 Temperature 36.7 C 03/12/25 19:20 Temperature Source Oral 03/12/25 19:20 Pulse 59 L 03/12/25 21:02 Pulse 53 L 03/12/25 21:02 Respiratory Rate 16 03/12/25 21:02 Respiratory Effort Normal, Non-Labored 03/12/25 19:31 Respiratory Depth Normal 03/12/25 19:31 Respiratory Pattern Normal 03/12/25 19:31 Blood Pressure 163/108 H 03/12/25 21:02 Blood Pressure Mean 126 03/12/25 21:02 Blood Pressure Position Sitting 03/12/25 19:20 Pulse Oximetry 96 03/12/25 21:00 Oxygen Delivery Method Room Air 03/12/25 19:20 Oxygen Flow Rate 0 03/12/25 19:20 Pain Level 4 03/12/25 19:20 Lab/Test Results Lab/Test Results: Laboratory Tests Range/Units 03/12/25 03/12/25 19:48 20:45 WBC (4.4-10.8) 10^3/uL 7.25 RBC (4.36-5.78) 10^6/uL 3.53 L Hgb (13.5-17.5) g/dL 11.7 L Hct (40.0-50.0) % 35.1 L MCV (80-95) fL 99 H MCH (27.0-33.0) pg 33.1 H MCHC (32.0-36.0) % 33.3 RDW (11.8-14.1) % 14.8 H Plt Count (130-400) 10^3/uL 204 MPV (8.0-11.0) fL 9.3 Immature Gran % % 0.3 Neutrophils % % 69.5 Lymphocytes % % 14.9 Monocytes % % 11.9 Eosinophils % % 3.0 Basophils % % 0.4 Nucleated RBC % (0.0-0.3) % 0.0 Absolute Neutrophils (1.2-6.7) 10^3/uL 5.04 Absolute Lymphocytes (1.2-3.4) 10^3/uL 1.08 L Absolute Monocytes (0.1-0.8) 10^3/uL 0.86 H Absolute Eosinophils (0.0-0.7) 10^3/uL 0.22 Absolute Basophils (0.0-0.2) 10^3/uL 0.03 PT (9.1-11.1) sec 10.8 INR (0.9-1.1) 1.1 APTT (20.6-30.2) sec 24.6 Sodium (136-145) mmol/L 140 Potassium (3.5-5.1) mmol/L 4.2 Chloride (98-107) mmol/L 106 Carbon Dioxide (21.0-32.0) mmol/L 24.5 Anion Gap (3-11) mmol/L 9.5 BUN (7-18) mg/dL 36 H Creatinine (0.70-1.30) mg/dL 2.1 H Est GFR (CKD-EPI 2020) (mL/min/1.73m2) 31.63 Glucose (74-106) mg/dL 165 H Calcium (8.5-10.1) mg/dL 9.2 Total Bilirubin (0.2-1.0) mg/dL 0.4 AST (15-37) U/L 19 ALT (16-63) U/L 29 Alkaline Phosphatase (46-116) U/L 104 Troponin I (<or=76) ng/L 17 17 NT-Pro-B Natriuret Pep (<300) pg/mL 191 Total Protein (6.4-8.2) g/dL 6.7 Albumin (3.4-5.0) g/dL 3.6 Medical Decision Making This is a 79-year-old male with a past medical history of type 2 diabetes mellitus, previous prostate cancer, chronic kidney disease, previous DVTs, previous atrial fibrillation, currently on Eliquis and Plavix, previous coronary artery disease with stenting in 2013, as well as chronic left sided shoulder discomfort for which she has had prior orthopedic surgeries and steroid injections, who presents today for evaluation of left shoulder discomfort with some radiation into the chest. Patient states that starting yesterday he developed some left shoulder achiness, initially it was achiness and pain in the left shoulder, but then with time began radiating into the left chest. The pain kept him up all last night. Pain was made worse when he would move or rotate his shoulder. He denies any associated shortness of breath, syncope, lightheadedness, or tearing or ripping sensation. No exertional discomfort or exertional chest pain. He states that this feels different than his previous myocardial infarction pain. He did take it did improve his symptoms. No other complaints at this time. Patient has no focal deformity or tenderness on the shoulder itself, however patient does have pain with external rotation. As well as the empty can test. No pain with anterior posterior movement. No significant pain with adduction, mild pain with abduction. Symptoms appear consistent with musculoskeletal etiology in his left shoulder, however differential includes less likely cardiac etiology. He has been taking his anticoagulant as prescribed, and symptoms of PE is clinically inconsistent with current symptomatology. Symptoms are inconsistent with dissection. He has equal pulses bilaterally. Symptoms likely being musculoskeletal in nature we will apply Voltaren gel topically as he is not a candidate for ibuprofen or Toradol. Will give Lidoderm patch, and because of his cardiac risk factors we will evaluate for cardiac concern. Will monitor closely and reassess. 10:20 PM EKG, serial troponins and blood work normal aside from slightly low hemoglobin at 11.7. No other significant abnormalities. Symptoms improved with Toradol and NSAID therapy. Chest x-ray negative for acute process. Symptomatology consistent with musculoskeletal etiology. Will recommend topical Voltaren, ice, and rest. If symptoms continue despite conservative therapy he may require further outpatient orthopedic follow-up. Additionally, recommend nonemergent outpatient stress testing with his PCP if clinically indicated and symptoms persist. Patient otherwise stable for discharge. Discussed red flags for which to return. I have extensively reviewed the treatment plan and discharge instructions with the patient and their family. I have addressed all patient concerns at this time. The patient and family was made aware of what symptoms to monitor for that would warrant a return to the emergency department. Discussed the plan with the patient and family, they demonstrate verbal understanding and agreement with our assessment and plan at this time. The documentation in this chart was dictated using [employer] dictation software. Please excuse any dictation errors. FINDINGS: Lungs: Unremarkable. No consolidation. Pleural spaces: Unremarkable. No pleural effusion. No pneumothorax. Heart/Mediastinum: No change cardiomegaly. Bones/joints: Unremarkable. IMPRESSION: No acute abnormality evident in the chest. Thank you for allowing us to participate in the care of your patient. Dictated and Authenticated by: Pamela Meade MD 03/12/2025 9:22 PM Eastern Time ([place] & [place]) [facility] All Active Problems (Updated 03/12/25 @ 21:53 by Richy Baltazar DO) Chest discomfort (Acute) Left shoulder pain (Acute) COVID-19 (Acute) Anterior epistaxis (Acute) Bursitis, olecranon (Acute) Finger sprain (Acute) Ascending aorta dilatation (Chronic) Osteoarthritis (Chronic) Nephrolithiasis (Chronic) URI (upper respiratory infection) (Acute) Medical History (Updated 03/12/25 @ 21:53 by Richy Baltazar DO) Chronic kidney disease Prostate cancer Diabetes mellitus type 2, insulin dependent Essential hypertension Coronary artery disease Atrial fibrillation Surgical History (Updated 08/07/21 @ 06:28 by Romel Hansen MD) History of prostatectomy History of back surgery History of rotator cuff surgery History of arthroscopic knee surgery History of coronary angioplasty with insertion of stent (06/20/13) Cardiac cath with drug-eluting stents to LAD and to mid circumflex on February 05, [address] Anuel Norris @ [place], [place]; repeat cath 06/20/2013 with 3 stents to Cx; Dr. Anuel Mcginnis's office is at [address] [place] [address]; phone number is [phone] Social History Smoking/Tobacco Use Status: Never Smoking risk assessment performed?: Yes Alcohol Intake: never Drug use: Never Substance use type: does not use Housing: house Do you feel safe at home: Yes Do you feel safe in your relationship?: Yes
== END 2025-03-12 22:07 | disposition home or self-care (01) ==
PROVIDERS: Emergency Provider Student in an Organized Health Care Education/Training Program; PCP Family Medicine
DX: R07.89 Other chest pain (principal); M25.512 Pain in left shoulder; I10 Essential (primary) hypertension; Z86.79 Personal history of other diseases of the circulatory system; Z79.01 Long term (current) use of anticoagulants
CPT/HCPCS: 99284 ×2; 36415; 80053; 93005; 93308; 71045; 83880; 84484; 85025; 85610; 85730; 93010